=== PATIENT | male | born 1965 | race Caucasian/White ===

== ENCOUNTER 2017-05-27 06:59 | Emergency (ER) | payer OTHER ==
[2017-05-27 07:11] VITALS: BP 149/83; PULSE 70; TEMP 98; BMI 32.5
[2017-05-27] MEDS ORDERED: IBUPROFEN 600 MG TABLET (FP) PO ONE ×2 (08:24→08:32)
--- NOTE | 2017-05-27 08:31 | PDOC ---
History of Present Illness - General Chief Complaint: Injury Stated Complaint: BACK PAIN S/P FALL Time Seen by Provider: 05/27/17 08:21 History Source: Patient Exam Limitations: No Limitations - History of Present Illness Initial Comments: 05/27/17 08:26 Patient slipped and fell this morning ice falling onto his right side with now complaints of pain to right hip and low back. No numbness or tingling to hands, no head injury Occurred: reports: just prior to arrival, this morning Severity: reports: moderate Pain Location: reports: back, pelvis Method of Injury: Yes: fall Modifying Factors: improves with: None Loss of Consciousness: no loss of consciousness Past History - Travel Traveled outside of the country in the last 30 days: No Close contact w/someone who was outside of country & ill: No - Past Medical History Allergies/Adverse Reactions: Allergies Allergy/AdvReac Type Severity Reaction Status Date / Time No Known Allergies Allergy Verified 05/27/17 07:11 Home Medications: Ambulatory Orders Cyclobenzaprine HCl [Flexeril 10 mg] 10 mg PO BID PRN #14 tablet 05/27/17 Ibuprofen 600 mg PO Q6H PRN #30 tablet 05/27/17 COPD: No Diabetes: Yes - Suicide/Smoking/Psychosocial Hx Smoking History: Never smoked Hx Alcohol Use: No Drug/Substance Use Hx: No Substance Use Type: None Review of Systems - Review of Systems Able to Perform ROS?: Yes Is the patient limited [place] Citizen proficient: Yes Constitutional: Yes: See HPI. No: Symptoms Reported, Chills HEENTM: Yes: See HPI. No: Symptoms Reported Respiratory: Yes: See HPI. No: Symptoms reported Musculoskeletal: Yes: Symptoms Reported, See HPI, Back Pain, Joint Pain, Muscle Pain Integumentary: Yes: See HPI, Bruising Neurological: Yes: See HPI. No: Symptoms reported, Headache All Other Systems: Reviewed and Negative *Physical Exam - Vital Signs Last Vital Signs Temp Pulse Resp BP Pulse Ox 98.0 F 70 18 149/83 97 05/27/17 07:08 05/27/17 07:08 05/27/17 07:08 05/27/17 07:08 05/27/17 07:08 - Physical Exam General Appearance: Yes: Nourished, Appropriately Dressed, Apparent Distress HEENT: positive: DAVINA, Normal ENT Inspection, TMs Normal, Pharynx Normal Neck: positive: Supple. negative: Tender Respiratory/Chest: positive: Lungs Clear, Normal Breath Sounds Cardiovascular: positive: Regular Rate Gastrointestinal/Abdominal: positive: Soft Musculoskeletal: positive: Normal Inspection, Decreased Range of Motion, Vertebral Tenderness (patient has tenderness palpated to multiple areas with very light palpation, range of motion is limited secondary to the spasm palpated to the right paravertebral spinous musculature. No crepitus or step- offs, no obvious bruising or erythema noted to areas of impact.) Extremity: positive: Normal Capillary Refill, Normal Inspection, Normal Range of Motion (ambulatory ) Integumentary: positive: Normal Color, Dry, Warm. negative: Swelling, Ecchymosis, Bruising Neurologic: positive: clinic receptionist II-XII NML intact, Fully Oriented, Alert, Normal Mood/ Affect, Normal Response, Motor Strength 09/12 ED Treatment Course - RADIOLOGY Radiology Studies Ordered: Category Date Time Status SPINE-LUMBAR SACRAL [RAD] Stat Radiology 05/27/17 08:25 Ordered Progress Note - Progress Note Progress Note: States negative for fractures or dislocation, reveal some DJD. Fall with muscle strain. We'll treat with NSAIDs and cyclobenzaprine *DC/Admit/Observation/Transfer Diagnosis at time of Disposition: Low back strain Qualifiers: Encounter type: initial encounter Qualified Code(s): S39.012A - Strain of muscle, fascia and tendon of lower back, initial encounter - Discharge Dispostion Disposition: HOME Condition at time of disposition: Stable Admit: No - Prescriptions Prescriptions: Cyclobenzaprine HCl [Flexeril 10 mg] 10 mg PO BID PRN #14 tablet PRN Reason: spasm Ibuprofen 600 mg PO Q6H PRN #30 tablet PRN Reason: Pain - Referrals Referrals: Joshua Maza MD, MD [Primary Care Provider] - - Patient Instructions Printed Discharge Instructions: DI for Back Strain or Sprain Additional Instructions: Rest, no heavy lifting or exercise until pain is resolved Hot soaks to neck and low back as often as possible/hot showers or Jacuzzis No massage or therapy until spasm is gone Continue ibuprofen 2-200 mg tablets every 6 hours for the next 3 days then as needed for pain and swelling Cyclobenzaprine 1-10mg every 8 hours as needed for spasm If not significant improvement within 24 hours with medication and rest regime, followup with private physician for change in medications and /or therapy. - Post Discharge Activity Forms/Work/School Notes: Back to Work
== END 2017-05-27 09:22 | disposition home or self-care (01) ==
LOC: JERFT 06:59 → JER 06:59 → JERFT 09:22
DX: S39.012A Strain of muscle, fascia and tendon of lower back, initial encounter (principal); W00.2XXA Other fall from one level to another due to ice and snow, initial encounter; Y93.89 Activity, other specified; Y92.89 Other specified places as the place of occurrence of the external cause
CPT/HCPCS: 72100-TC; 99281-25

== ENCOUNTER 2020-04-09 12:25 | Inpatient (IN) | payer OTHER ==
[2020-04-09] MEDS ORDERED: DEXAMETHASONE 4 MG TABLET (FP) PO ONE (13:02)
[2020-04-09] MEDS ORDERED: DEXAMETHASONE SOD PHOSPHATE 4 MG/1 ML VIAL IVPUSH ONE (13:22)
[2020-04-09] MEDS ORDERED: DEXAMETHASONE SOD PHOSPHATE 4 MG/1 ML VIAL ONE (13:24)
[2020-04-09] MEDS ORDERED: AZITHROMYCIN IVPB 250 MG in DEXTROSE 5%-WATER - 250 ML IVPB ONE (13:29)
[2020-04-09 13:31] LABS: BASO % 0.5 % (0-2.0); EOS % 0.6 % (0-4.5); HEMATOCRIT 46.4 % (35.4-49); HEMOGLOBIN 15.5 GM/dL (11.7-16.9); LYMPH % 16.8 % (8-40); MCH 29.4 pg (25.7-33.7); MCHC 33.4 g/dl (32.0-35.9); MEAN CELL VOLUME 88.1 fl (80-96); MEAN PLT VOLUME 8.9 fl (7.5-11.1); MONO % 5.7 % (3.8-10.2); NEUT % 76.4 % (42.8-82.8); PLATELET COUNT 195 K/MM3 (134-434); RBC 5.26 M/mm3 (4.00-5.60); RDW 13.1 % (11.9-15.9); WHITE BLOOD COUNT 8.3 K/mm3 (4.0-10.0)
[2020-04-09 13:35] LABS: EPI CELLS 2 /uL (0-25.1); HYALINE CASTS 0 /uL (0-3.1); PH,URINE 5.5 (5.0-8.0); URINE APPEARANCE CLEAR; URINE BACTERIA 35 /uL (0-1359); URINE BILIRUBIN NEGATIVE (NEGATIVE); URINE COLOR YELLOW; URINE GLUCOSE (UA) 3+ (NEGATIVE); URINE KETONE 1+ (NEGATIVE); URINE LEUK ESTERASE NEGATIVE (NEGATIVE); URINE NITRITE NEGATIVE (NEGATIVE); URINE PROTEIN 1+ (NEGATIVE); URINE RBC 23 /uL (0-23.9); URINE WBC 14 /uL (0-25.8)
[2020-04-09] MEDS ORDERED: CEFTRIAXONE 1 GM/50 ML BAG ONE (13:44)
[2020-04-09] MEDS ORDERED: AZITHROMYCIN IVPB 500 MG/250 ML BAG IVPB ONE (13:44)
[2020-04-09 13:46] LABS: INR 1.08 (0.83-1.09)
[2020-04-09 13:48] LABS: ACTIVATED PTT 29.4 SECONDS (25.2-36.5)
[2020-04-09 13:52] LABS: CHLORIDE 93 mmol/L (98-107); POTASSIUM 3.5 mmol/L (3.5-5.1); SODIUM 130 mmol/L (136-145)
[2020-04-09 13:55] LABS: ALBUMIN 2.4 g/dl (3.4-5.0); ANION GAP 7 MMOL/L (8-16); BLOOD UREA NITROGEN 5.4 mg/dL (7-18); CO2 30 mmol/L (21-32); GLUCOSE,RANDOM 369 mg/dL (74-106)
[2020-04-09 13:57] LABS: BILIRUBIN,DIRECT 0.2 mg/dL (0.0-0.2)
[2020-04-09 13:58] LABS: CREATININE 0.7 mg/dL (0.55-1.3); SGOT/AST 45 U/L (15-37); SGPT/ALT 30 U/L (13-61)
[2020-04-09 13:59] LABS: VENOUS BASE EXCESS 5.6 mmol/L (-2-2); VENOUS O2 SATURATION 41.6 % (70-80); VENOUS PCO2 50.5 mmHg (38-52); VENOUS PH 7.414 (7.310-7.410)
[2020-04-09 13:59] LABS: BILIRUBIN,TOTAL 0.5 mg/dL (0.2-1)
[2020-04-09 14:00] LABS: ALK PHOS 136 U/L (45-117)
[2020-04-09 14:01] LABS: LDH 509 U/L (87-246)
[2020-04-09] MEDS ORDERED: ENOXAPARIN NA (PORCINE) 40 MG/0.4 ML DISP.SYRIN SQ ONE (14:19)
[2020-04-09] MEDS ORDERED: ENOXAPARIN NA (PORCINE) 60 MG/0.6 ML DISP.SYRIN SQ ONE (14:26)
[2020-04-09] MEDS ORDERED: MIDAZOLAM HCL 2 MG/2 ML SINGLE DOSE VIAL IVPUSH ONE (17:13)
[2020-04-09] MEDS ORDERED: LOSARTAN POTASSIUM 50 MG TABLET ONE (18:36)
[2020-04-09] MEDS: LOSARTAN POTASSIUM 50 MG TABLET PO SCH (18:38)
[2020-04-09] MEDS: INSULIN SLIDING SCALE (NOVOLOG) 1 VIAL SQ SCH (22:10)
[2020-04-10] MEDS: INSULIN SLIDING SCALE (NOVOLOG) 1 VIAL SQ SCH ×4 (06:49→22:58)
[2020-04-10 08:11] LABS: POTASSIUM 3.8 mmol/L (3.5-5.1)
[2020-04-10 08:13] LABS: BASO % 0.4 % (0-2.0); HEMATOCRIT 47.7 % (35.4-49); HEMOGLOBIN 16.1 GM/dL (11.7-16.9); LYMPH % 19.7 % (8-40); MCHC 33.7 g/dl (32.0-35.9); MEAN CELL VOLUME 89.1 fl (80-96); MEAN PLT VOLUME 9.3 fl (7.5-11.1); MONO % 9.6 % (3.8-10.2); NEUT % 70.3 % (42.8-82.8); PLATELET COUNT 262 K/MM3 (134-434); RBC 5.36 M/mm3 (4.00-5.60); RDW 12.9 % (11.9-15.9); WHITE BLOOD COUNT 8.2 K/mm3 (4.0-10.0)
[2020-04-10 08:15] LABS: BLOOD UREA NITROGEN 10.2 mg/dL (7-18); MAGNESIUM 2.1 mg/dL (1.8-2.4)
[2020-04-10 08:16] LABS: ALBUMIN 2.5 g/dl (3.4-5.0); CALCIUM 8.3 mg/dL (8.5-10.1)
[2020-04-10 08:18] LABS: CREATININE 0.7 mg/dL (0.55-1.3); PHOSPHOROUS 4.4 mg/dL (2.5-4.9)
[2020-04-10 08:20] LABS: TOT PROT 7.2 g/dl (6.4-8.2)
[2020-04-10] MEDS ORDERED: CEFTRIAXONE 1 GM in DEXTROSE 5%-WATER - 50 ML IVPB SCH (10:00)
[2020-04-10] MEDS ORDERED: ASCORBIC ACID 500 MG TABLET (FP) PO SCH (10:00)
[2020-04-10] MEDS ORDERED: AZITHROMYCIN IVPB 500 MG/250 ML BAG IVPB SCH (10:00)
[2020-04-10] MEDS ORDERED: ENOXAPARIN NA (PORCINE) 40 MG/0.4 ML DISP.SYRIN SQ SCH (10:00)
[2020-04-10] MEDS ORDERED: ZINC SULFATE 220 MG CAPSULE (FP) PO SCH (10:00)
[2020-04-10] MEDS ORDERED: DEXAMETHASONE SOD PHOSPHATE 4 MG/1 ML VIAL IVPUSH SCH (10:00)
[2020-04-10] MEDS: LOSARTAN POTASSIUM 50 MG TABLET PO SCH (10:27)
[2020-04-10] MEDS ORDERED: APIXABAN 5 MG TABLET PO SCH (12:30)
[2020-04-10] MEDS ORDERED: FAMOTIDINE 20 MG/50 ML IVPB 20 MG/50 ML MG IVPB SCH (12:30)
[2020-04-10] MEDS ORDERED: INSULIN (LEVEMIR) 100 UNITS/ML UNITS SQ ONE (13:34)
[2020-04-10 15:14] LABS: EPI CELLS 3 /uL (0-25.1); HYALINE CASTS 2 /uL (0-3.1); PH,URINE 5.5 (5.0-8.0); URINE APPEARANCE CLEAR; URINE BACTERIA 6 /uL (0-1359); URINE BILIRUBIN NEGATIVE (NEGATIVE); URINE COLOR YELLOW; URINE GLUCOSE (UA) 3+ (NEGATIVE); URINE KETONE 4+ (NEGATIVE); URINE LEUK ESTERASE NEGATIVE (NEGATIVE); URINE NITRITE NEGATIVE (NEGATIVE); URINE PROTEIN 1+ (NEGATIVE); URINE RBC 6 /uL (0-23.9); URINE UROBILINOGEN 0.2 mg/dL (0.2-1.0); URINE WBC 8 /uL (0-25.8)
[2020-04-10] MEDS ORDERED: REMDESIVIR 200 MG in SODIUM CHLORIDE 210 ML IVPB ONE (15:44)
[2020-04-10] MEDS ORDERED: SODIUM CHLORIDE 1,000 ML IV STA (18:40)
[2020-04-10 20:18] LABS: BASO % 0.3 % (0-2.0); HEMATOCRIT 46.8 % (35.4-49); HEMOGLOBIN 15.8 GM/dL (11.7-16.9); LYMPH % 13.4 % (8-40); MCH 29.9 pg (25.7-33.7); MCHC 33.7 g/dl (32.0-35.9); MEAN CELL VOLUME 88.6 fl (80-96); MEAN PLT VOLUME 9.1 fl (7.5-11.1); MONO % 9.4 % (3.8-10.2); NEUT % 76.9 % (42.8-82.8); PLATELET COUNT 284 K/MM3 (134-434); RBC 5.28 M/mm3 (4.00-5.60); RDW 13.2 % (11.9-15.9); WHITE BLOOD COUNT 7.4 K/mm3 (4.0-10.0)
[2020-04-10 20:38] LABS: POTASSIUM 4.1 mmol/L (3.5-5.1)
[2020-04-10 20:40] LABS: BLOOD UREA NITROGEN 10.7 mg/dL (7-18); CALCIUM 7.9 mg/dL (8.5-10.1)
[2020-04-10 20:41] LABS: ALBUMIN 2.4 g/dl (3.4-5.0)
[2020-04-10 20:44] LABS: CREATININE 0.6 mg/dL (0.55-1.3)
[2020-04-10 20:45] LABS: BILIRUBIN,TOTAL 0.4 mg/dL (0.2-1); TOT PROT 6.8 g/dl (6.4-8.2)
[2020-04-10 21:44] LABS: ALLENS TEST POSITIVE; ARTERIAL BLD GAS O2 SATURATION 94.6 mmHg (95-98); ARTERIAL BLOOD GAS BASE EXCESS -2.2 mmol/L (-2-2); ARTERIAL BLOOD GAS PO2 69.5 mmHg (80-100); ARTERIAL BLOOD GAS pH 7.432 (7.350-7.450)
[2020-04-10] MEDS ORDERED: MUPIROCIN 2% TOPICAL OINTMENT FOR DECOLONIZATION NS SCH (22:00)
[2020-04-10] MEDS ORDERED: CHLORHEXIDINE GLUCONATE 4% CLEANSER FOR DECOLONIZATION TP SCH (22:00)
[2020-04-10] MEDS: FAMOTIDINE 20 MG/50 ML IVPB 20 MG/50 ML MG IVPB SCH (22:56)
[2020-04-10] MEDS: APIXABAN 5 MG TABLET PO SCH (22:56)
[2020-04-10] MEDS: INSULIN (LEVEMIR) 100 UNITS/ML UNITS SQ SCH (22:57)
[2020-04-11] MEDS: INSULIN SLIDING SCALE (NOVOLOG) 1 VIAL SQ SCH ×3 (06:27→23:37)
[2020-04-11] MEDS: INSULIN (LEVEMIR) 100 UNITS/ML UNITS SQ SCH ×2 (06:27→23:37)
[2020-04-11 08:24] LABS: BASO % 0.2 % (0-2.0); EOS % 0.1 % (0-4.5); HEMATOCRIT 43.6 % (35.4-49); HEMOGLOBIN 14.7 GM/dL (11.7-16.9); LYMPH % 19.5 % (8-40); MCH 29.5 pg (25.7-33.7); MCHC 33.7 g/dl (32.0-35.9); MEAN CELL VOLUME 87.4 fl (80-96); MEAN PLT VOLUME 8.4 fl (7.5-11.1); MONO % 11.3 % (3.8-10.2); NEUT % 68.9 % (42.8-82.8); PLATELET COUNT 298 K/MM3 (134-434); RBC 4.99 M/mm3 (4.00-5.60); RDW 13.2 % (11.9-15.9); WHITE BLOOD COUNT 10.5 K/mm3 (4.0-10.0)
[2020-04-11 08:49] LABS: POTASSIUM 3.7 mmol/L (3.5-5.1)
[2020-04-11 09:13] LABS: BILIRUBIN,TOTAL 0.6 mg/dL (0.2-1); BLOOD UREA NITROGEN 9.9 mg/dL (7-18); CALCIUM 7.9 mg/dL (8.5-10.1); TOT PROT 6.4 g/dl (6.4-8.2)
[2020-04-11 09:14] LABS: ALBUMIN 2.3 g/dl (3.4-5.0)
[2020-04-11 09:15] LABS: CREATININE 0.6 mg/dL (0.55-1.3)
[2020-04-11 09:16] LABS: PHOSPHOROUS 3.1 mg/dL (2.5-4.9)
[2020-04-11] MEDS ORDERED: cefTRIAXone SODIUM 1 GM VIAL ONE (09:47)
[2020-04-11] MEDS ORDERED: DEXTROSE 5%-WATER - 50 ML IVPB ONE (09:48)
[2020-04-11] MEDS ORDERED: CEFTRIAXONE 1 GM in DEXTROSE 5%-WATER - 50 ML IVPB SCH (10:00)
[2020-04-11] MEDS ORDERED: AZITHROMYCIN IVPB 500 MG/250 ML BAG IVPB SCH (10:00)
[2020-04-11] MEDS: FAMOTIDINE 20 MG/50 ML IVPB 20 MG/50 ML MG IVPB SCH ×2 (10:06→23:36)
[2020-04-11] MEDS: APIXABAN 5 MG TABLET PO SCH ×2 (10:07→23:36)
[2020-04-11] MEDS: ZINC SULFATE 220 MG CAPSULE (FP) PO SCH (10:07)
[2020-04-11] MEDS: LOSARTAN POTASSIUM 50 MG TABLET PO SCH (10:07)
[2020-04-11] MEDS: DEXAMETHASONE SOD PHOSPHATE 4 MG/1 ML VIAL IVPUSH SCH (10:07)
[2020-04-11] MEDS: ASCORBIC ACID 500 MG TABLET (FP) PO SCH (10:07)
[2020-04-11] MEDS: Insulin (LOG) Aspart 100 UNITS/ML VIAL SQ SCH ×2 (12:11→17:53)
[2020-04-11] MEDS: REMDESIVIR 100 MG in SODIUM CHLORIDE 230 ML IVPB SCH (17:10)
[2020-04-11] MEDS ORDERED: PT OWN MED DRAWER 7, Y5N ONE (18:53)
[2020-04-11] MEDS ORDERED: MELATONIN 5 MG TABLETS PO ONE (22:32)
[2020-04-12] MEDS: Insulin (LOG) Aspart 100 UNITS/ML VIAL SQ SCH ×3 (07:24→16:33)
[2020-04-12] MEDS: INSULIN (LEVEMIR) 100 UNITS/ML UNITS SQ SCH ×2 (07:24→21:57)
[2020-04-12] MEDS: INSULIN SLIDING SCALE (NOVOLOG) 1 VIAL SQ SCH ×4 (07:25→21:54)
[2020-04-12 08:03] LABS: POTASSIUM 3.8 mmol/L (3.5-5.1)
[2020-04-12 08:09] LABS: ALBUMIN 2.4 g/dl (3.4-5.0)
[2020-04-12 08:10] LABS: BLOOD UREA NITROGEN 9.8 mg/dL (7-18); CALCIUM 8.1 mg/dL (8.5-10.1)
[2020-04-12 08:13] LABS: CREATININE 0.5 mg/dL (0.55-1.3)
[2020-04-12 08:14] LABS: BILIRUBIN,TOTAL 0.6 mg/dL (0.2-1); PHOSPHOROUS 3.7 mg/dL (2.5-4.9)
[2020-04-12 08:15] LABS: TOT PROT 6.4 g/dl (6.4-8.2)
[2020-04-12 08:17] LABS: BASO % 0.3 % (0-2.0); EOS % 0.1 % (0-4.5); HEMATOCRIT 45.3 % (35.4-49); HEMOGLOBIN 15.2 GM/dL (11.7-16.9); LYMPH % 18.5 % (8-40); MCH 29.3 pg (25.7-33.7); MCHC 33.5 g/dl (32.0-35.9); MEAN CELL VOLUME 87.6 fl (80-96); MEAN PLT VOLUME 8.7 fl (7.5-11.1); MONO % 8.3 % (3.8-10.2); NEUT % 72.8 % (42.8-82.8); PLATELET COUNT 357 K/MM3 (134-434); RBC 5.17 M/mm3 (4.00-5.60); RDW 12.9 % (11.9-15.9); WHITE BLOOD COUNT 13.8 K/mm3 (4.0-10.0)
[2020-04-12] MEDS ORDERED: INSULIN (LEVEMIR) 100 UNITS/ML UNITS SQ SCH (08:38)
[2020-04-12] MEDS ORDERED: PT OWN MED DRAWER 7, Y5N ONE (09:09)
[2020-04-12] MEDS: LOSARTAN POTASSIUM 50 MG TABLET PO SCH (09:29)
[2020-04-12] MEDS: FAMOTIDINE 20 MG/50 ML IVPB 20 MG/50 ML MG IVPB SCH ×2 (09:29→21:45)
[2020-04-12] MEDS: ZINC SULFATE 220 MG CAPSULE (FP) PO SCH (09:29)
[2020-04-12] MEDS: DEXAMETHASONE SOD PHOSPHATE 4 MG/1 ML VIAL IVPUSH SCH (09:29)
[2020-04-12] MEDS: ASCORBIC ACID 500 MG TABLET (FP) PO SCH (09:30)
[2020-04-12] MEDS: APIXABAN 5 MG TABLET PO SCH ×2 (09:30→21:45)
[2020-04-12] MEDS: REMDESIVIR 100 MG in SODIUM CHLORIDE 230 ML IVPB SCH (16:34)
[2020-04-12] MEDS: MELATONIN 5 MG TABLETS PO SCH (23:39)
[2020-04-13] MEDS: Insulin (LOG) Aspart 100 UNITS/ML VIAL SQ SCH (06:59)
[2020-04-13] MEDS: INSULIN SLIDING SCALE (NOVOLOG) 1 VIAL SQ SCH ×4 (07:00→22:14)
[2020-04-13] MEDS: INSULIN (LEVEMIR) 100 UNITS/ML UNITS SQ SCH ×2 (07:01→22:13)
[2020-04-13 08:44] LABS: BASO % 0.2 % (0-2.0); EOS % 0.5 % (0-4.5); HEMATOCRIT 46.2 % (35.4-49); HEMOGLOBIN 15.5 GM/dL (11.7-16.9); LYMPH % 18.5 % (8-40); MCHC 33.5 g/dl (32.0-35.9); MEAN CELL VOLUME 86.7 fl (80-96); MEAN PLT VOLUME 8.3 fl (7.5-11.1); MONO % 7.9 % (3.8-10.2); NEUT % 72.9 % (42.8-82.8); PLATELET COUNT 342 K/MM3 (134-434); RBC 5.33 M/mm3 (4.00-5.60); RDW 12.8 % (11.9-15.9); WHITE BLOOD COUNT 12.5 K/mm3 (4.0-10.0)
[2020-04-13 09:01] LABS: POTASSIUM 3.2 mmol/L (3.5-5.1)
[2020-04-13] MEDS: ZINC SULFATE 220 MG CAPSULE (FP) PO SCH (09:02)
[2020-04-13] MEDS: APIXABAN 5 MG TABLET PO SCH ×2 (09:02→22:12)
[2020-04-13] MEDS: LOSARTAN POTASSIUM 50 MG TABLET PO SCH (09:02)
[2020-04-13] MEDS: FAMOTIDINE 20 MG/50 ML IVPB 20 MG/50 ML MG IVPB SCH ×2 (09:02→22:11)
[2020-04-13] MEDS: ASCORBIC ACID 500 MG TABLET (FP) PO SCH (09:02)
[2020-04-13 09:20] LABS: ALBUMIN 2.3 g/dl (3.4-5.0); CALCIUM 8.4 mg/dL (8.5-10.1)
[2020-04-13 09:21] LABS: BLOOD UREA NITROGEN 6.9 mg/dL (7-18); MAGNESIUM 1.8 mg/dL (1.8-2.4)
[2020-04-13 09:23] LABS: CREATININE 0.5 mg/dL (0.55-1.3)
[2020-04-13 09:24] LABS: PHOSPHOROUS 4.2 mg/dL (2.5-4.9)
[2020-04-13 09:25] LABS: BILIRUBIN,TOTAL 0.4 mg/dL (0.2-1)
[2020-04-13] MEDS: DEXAMETHASONE SOD PHOSPHATE 4 MG/1 ML VIAL IVPUSH SCH (09:51)
[2020-04-13] MEDS: INSULIN (NOVOLOG) ASPART 100 UNITS/ML 10ML VIAL SQ SCH ×2 (11:09→16:39)
[2020-04-13] MEDS ORDERED: POTASSIUM CHLORIDE ORAL LIQUID 20 MEQ/15 ML PO ONE (12:29)
[2020-04-13] MEDS: KCL 10 MEQ IVPB 10 MEQ/100 ML INFUS.BAG IVPB SCH ×3 (14:24→16:41)
[2020-04-13] MEDS: REMDESIVIR 100 MG in SODIUM CHLORIDE 230 ML IVPB SCH (16:16)
[2020-04-13] MEDS: MELATONIN 5 MG TABLETS PO SCH (22:12)
[2020-04-13] MEDS: ALPRAZolam 0.25 MG TABLET PO PRN (22:24)
[2020-04-14] MEDS: INSULIN (LEVEMIR) 100 UNITS/ML UNITS SQ SCH ×2 (06:46→22:11)
[2020-04-14] MEDS: INSULIN (NOVOLOG) ASPART 100 UNITS/ML 10ML VIAL SQ SCH ×3 (06:47→16:59)
[2020-04-14] MEDS: INSULIN SLIDING SCALE (NOVOLOG) 1 VIAL SQ SCH ×4 (06:48→22:12)
[2020-04-14 07:45] LABS: POTASSIUM 3.7 mmol/L (3.5-5.1)
[2020-04-14 07:53] LABS: CREATININE 0.4 mg/dL (0.55-1.3)
[2020-04-14 07:54] LABS: BILIRUBIN,TOTAL 0.5 mg/dL (0.2-1); CALCIUM 7.9 mg/dL (8.5-10.1)
[2020-04-14 07:55] LABS: MAGNESIUM 1.8 mg/dL (1.8-2.4); TOT PROT 5.4 g/dl (6.4-8.2)
[2020-04-14 08:08] LABS: BASO % 0.4 % (0-2.0); EOS % 1.2 % (0-4.5); HEMATOCRIT 44.2 % (35.4-49); HEMOGLOBIN 14.7 GM/dL (11.7-16.9); LYMPH % 18.3 % (8-40); MCH 29.5 pg (25.7-33.7); MCHC 33.3 g/dl (32.0-35.9); MEAN CELL VOLUME 88.6 fl (80-96); MEAN PLT VOLUME 8.7 fl (7.5-11.1); MONO % 7.3 % (3.8-10.2); NEUT % 72.8 % (42.8-82.8); PLATELET COUNT 314 K/MM3 (134-434); RBC 4.99 M/mm3 (4.00-5.60); RDW 12.8 % (11.9-15.9)
[2020-04-14 09:04] LABS: ANISOCYTOSIS 0; HELMET CELLS 0; HOWELL-JOLLY BODIES 0; MACROCYTOSIS 0; OVALOCYTE 0; PLATELET ESTIMATE NORMAL; ROULEAU 0; SICKELED CELLS 0; TARGET CELLS 0; TEAR DROP CELLS 0; TOXIC GRANULATION 0
[2020-04-14] MEDS: ASCORBIC ACID 500 MG TABLET (FP) PO SCH (09:41)
[2020-04-14] MEDS: ZINC SULFATE 220 MG CAPSULE (FP) PO SCH (09:41)
[2020-04-14] MEDS: LOSARTAN POTASSIUM 50 MG TABLET PO SCH (09:41)
[2020-04-14] MEDS: APIXABAN 5 MG TABLET PO SCH ×2 (09:41→22:11)
[2020-04-14] MEDS: ALPRAZolam 0.25 MG TABLET PO PRN (09:41)
[2020-04-14] MEDS: FAMOTIDINE 20 MG/50 ML IVPB 20 MG/50 ML MG IVPB SCH ×2 (09:42→22:12)
[2020-04-14] MEDS: DEXAMETHASONE SOD PHOSPHATE 4 MG/1 ML VIAL IVPUSH SCH (09:42)
[2020-04-14] MEDS: REMDESIVIR 100 MG in SODIUM CHLORIDE 230 ML IVPB SCH (16:59)
[2020-04-14] MEDS: MELATONIN 5 MG TABLETS PO SCH (22:11)
[2020-04-14] MEDS ORDERED: PT OWN MED DRAWER 7, Y5N ONE (22:14)
[2020-04-15] MEDS: MELATONIN 5 MG TABLETS PO SCH ×2 (01:18→22:21)
[2020-04-15] MEDS: INSULIN (LEVEMIR) 100 UNITS/ML UNITS SQ SCH ×2 (06:56→22:35)
[2020-04-15] MEDS: INSULIN (NOVOLOG) ASPART 100 UNITS/ML 10ML VIAL SQ SCH ×3 (06:57→18:10)
[2020-04-15] MEDS: INSULIN SLIDING SCALE (NOVOLOG) 1 VIAL SQ SCH ×4 (06:57→22:35)
[2020-04-15 07:00] LABS: BASO % 0.1 % (0-2.0); EOS % 2.6 % (0-4.5); HEMATOCRIT 43.8 % (35.4-49); HEMOGLOBIN 14.7 GM/dL (11.7-16.9); LYMPH % 12.9 % (8-40); MCH 29.6 pg (25.7-33.7); MCHC 33.6 g/dl (32.0-35.9); MEAN CELL VOLUME 88.1 fl (80-96); MEAN PLT VOLUME 8.6 fl (7.5-11.1); MONO % 6.4 % (3.8-10.2); PLATELET COUNT 370 K/MM3 (134-434); RBC 4.97 M/mm3 (4.00-5.60); RDW 12.8 % (11.9-15.9); WHITE BLOOD COUNT 15.3 K/mm3 (4.0-10.0)
[2020-04-15 07:20] LABS: POTASSIUM 3.7 mmol/L (3.5-5.1)
[2020-04-15 07:27] LABS: ALBUMIN 2.1 g/dl (3.4-5.0); BLOOD UREA NITROGEN 10.2 mg/dL (7-18)
[2020-04-15 07:30] LABS: CREATININE 0.4 mg/dL (0.55-1.3)
[2020-04-15 07:32] LABS: BILIRUBIN,TOTAL 0.5 mg/dL (0.2-1); TOT PROT 5.7 g/dl (6.4-8.2)
[2020-04-15] MEDS: ZINC SULFATE 220 MG CAPSULE (FP) PO SCH (09:18)
[2020-04-15] MEDS: ASCORBIC ACID 500 MG TABLET (FP) PO SCH (09:18)
[2020-04-15] MEDS: DEXAMETHASONE SOD PHOSPHATE 4 MG/1 ML VIAL IVPUSH SCH (09:18)
[2020-04-15] MEDS: APIXABAN 5 MG TABLET PO SCH ×2 (09:18→22:21)
[2020-04-15] MEDS: LOSARTAN POTASSIUM 50 MG TABLET PO SCH (09:18)
[2020-04-15] MEDS: FAMOTIDINE 20 MG/50 ML IVPB 20 MG/50 ML MG IVPB SCH ×2 (09:19→22:21)
[2020-04-16] MEDS: INSULIN (LEVEMIR) 100 UNITS/ML UNITS SQ SCH (07:18)
[2020-04-16] MEDS: INSULIN (NOVOLOG) ASPART 100 UNITS/ML 10ML VIAL SQ SCH ×3 (07:19→17:43)
[2020-04-16] MEDS: INSULIN SLIDING SCALE (NOVOLOG) 1 VIAL SQ SCH ×4 (07:20→22:01)
[2020-04-16 08:01] LABS: BASO % 0.1 % (0-2.0); EOS % 1.8 % (0-4.5); HEMATOCRIT 43.3 % (35.4-49); HEMOGLOBIN 14.3 GM/dL (11.7-16.9); LYMPH % 10.5 % (8-40); MEAN CELL VOLUME 87.8 fl (80-96); MEAN PLT VOLUME 8.7 fl (7.5-11.1); MONO % 6.8 % (3.8-10.2); NEUT % 80.8 % (42.8-82.8); PLATELET COUNT 395 K/MM3 (134-434); RBC 4.94 M/mm3 (4.00-5.60); RDW 13.1 % (11.9-15.9); WHITE BLOOD COUNT 15.7 K/mm3 (4.0-10.0)
[2020-04-16 08:21] LABS: CALCIUM 7.9 mg/dL (8.5-10.1)
[2020-04-16 08:22] LABS: BLOOD UREA NITROGEN 12.4 mg/dL (7-18)
[2020-04-16 08:25] LABS: CREATININE 0.5 mg/dL (0.55-1.3)
[2020-04-16 08:26] LABS: BILIRUBIN,TOTAL 0.9 mg/dL (0.2-1); TOT PROT 5.6 g/dl (6.4-8.2)
[2020-04-16] MEDS: FAMOTIDINE 20 MG/50 ML IVPB 20 MG/50 ML MG IVPB SCH ×2 (09:58→21:38)
[2020-04-16] MEDS: LOSARTAN POTASSIUM 50 MG TABLET PO SCH (09:58)
[2020-04-16] MEDS: DEXAMETHASONE SOD PHOSPHATE 4 MG/1 ML VIAL IVPUSH SCH (09:58)
[2020-04-16] MEDS: ASCORBIC ACID 500 MG TABLET (FP) PO SCH (09:59)
[2020-04-16] MEDS: ZINC SULFATE 220 MG CAPSULE (FP) PO SCH (10:00)
[2020-04-16] MEDS: APIXABAN 5 MG TABLET PO SCH ×2 (10:00→21:38)
[2020-04-16] MEDS ORDERED: INSULIN (NOVOLOG) ASPART 100 UNITS/ML 10ML VIAL SQ SCH (16:30)
[2020-04-16] MEDS: MELATONIN 5 MG TABLETS PO SCH (21:38)
[2020-04-16] MEDS ORDERED: INSULIN (LEVEMIR) 100 UNITS/ML UNITS SQ SCH (22:00)
[2020-04-16] MEDS ORDERED: diphenhydrAMINE HCL 25 MG CAPSULE (FP) PO ONE (22:07)
[2020-04-17] MEDS: INSULIN (NOVOLOG) ASPART 100 UNITS/ML 10ML VIAL SQ SCH ×3 (06:30→16:49)
[2020-04-17] MEDS: INSULIN SLIDING SCALE (NOVOLOG) 1 VIAL SQ SCH ×4 (06:31→23:11)
[2020-04-17 06:34] LABS: BASO % 0.3 % (0-2.0); EOS % 0.8 % (0-4.5); HEMATOCRIT 43.3 % (35.4-49); HEMOGLOBIN 14.3 GM/dL (11.7-16.9); LYMPH % 9.9 % (8-40); MCH 28.9 pg (25.7-33.7); MEAN CELL VOLUME 87.7 fl (80-96); MEAN PLT VOLUME 8.2 fl (7.5-11.1); MONO % 7.5 % (3.8-10.2); NEUT % 81.5 % (42.8-82.8); PLATELET COUNT 370 K/MM3 (134-434); RBC 4.94 M/mm3 (4.00-5.60)
[2020-04-17 06:45] LABS: POTASSIUM 3.8 mmol/L (3.5-5.1)
[2020-04-17 06:54] LABS: BLOOD UREA NITROGEN 10.1 mg/dL (7-18); CALCIUM 7.9 mg/dL (8.5-10.1)
[2020-04-17 06:55] LABS: MAGNESIUM 1.8 mg/dL (1.8-2.4)
[2020-04-17 06:58] LABS: CREATININE 0.4 mg/dL (0.55-1.3)
[2020-04-17 06:59] LABS: BILIRUBIN,TOTAL 0.8 mg/dL (0.2-1); PHOSPHOROUS 3.8 mg/dL (2.5-4.9); TOT PROT 5.5 g/dl (6.4-8.2)
[2020-04-17] MEDS ORDERED: INSULIN (LEVEMIR) 100 UNITS/ML UNITS SQ SCH ×2 (07:00→22:00)
[2020-04-17 09:32] LABS: ARTERIAL BLD GAS O2 SATURATION 89.5 mmHg (95-98); ARTERIAL BLOOD GAS BASE EXCESS 4.1 mmol/L (-2-2); ARTERIAL BLOOD GAS PO2 53.3 mmHg (80-100); ARTERIAL BLOOD GAS pH 7.465 (7.350-7.450)
[2020-04-17 09:34] LABS: ALLENS TEST POSITIVE
[2020-04-17] MEDS: FAMOTIDINE 20 MG/50 ML IVPB 20 MG/50 ML MG IVPB SCH ×2 (09:34→21:11)
[2020-04-17] MEDS: DEXAMETHASONE SOD PHOSPHATE 4 MG/1 ML VIAL IVPUSH SCH (09:34)
[2020-04-17] MEDS: LOSARTAN POTASSIUM 50 MG TABLET PO SCH (09:34)
[2020-04-17] MEDS: ZINC SULFATE 220 MG CAPSULE (FP) PO SCH (09:35)
[2020-04-17] MEDS: ASCORBIC ACID 500 MG TABLET (FP) PO SCH (09:35)
[2020-04-17] MEDS: APIXABAN 5 MG TABLET PO SCH ×2 (09:35→21:10)
[2020-04-17] MEDS: DEXAMETHASONE SOD PHOSPHATE 10 MG/1 ML VIAL IVPUSH SCH ×3 (11:53→21:10)
[2020-04-17] MEDS ORDERED: LABETALOL HCL 5 MG/1 ML (100MG/20 ML VIAL) IVPUSH ONE (18:08)
[2020-04-17] MEDS: CHLORHEXIDINE GLUCONATE 4% CLEANSER FOR DECOLONIZATION TP SCH (21:10)
[2020-04-17] MEDS: MUPIROCIN 2% TOPICAL OINTMENT FOR DECOLONIZATION NS SCH (21:10)
[2020-04-17] MEDS: MELATONIN 5 MG TABLETS PO SCH (21:11)
[2020-04-18] MEDS: DEXAMETHASONE SOD PHOSPHATE 10 MG/1 ML VIAL IVPUSH SCH ×4 (03:16→22:00)
[2020-04-18] MEDS: INSULIN (LEVEMIR) 100 UNITS/ML UNITS SQ SCH ×2 (06:42→22:40)
[2020-04-18] MEDS: INSULIN SLIDING SCALE (NOVOLOG) 1 VIAL SQ SCH ×4 (06:43→22:38)
[2020-04-18 07:31] LABS: POTASSIUM 4.5 mmol/L (3.5-5.1)
[2020-04-18 07:34] LABS: BASO % 0.3 % (0-2.0); HEMATOCRIT 46.2 % (35.4-49); HEMOGLOBIN 15.3 GM/dL (11.7-16.9); LYMPH % 3.9 % (8-40); MCH 29.2 pg (25.7-33.7); MCHC 33.2 g/dl (32.0-35.9); MEAN PLT VOLUME 8.6 fl (7.5-11.1); MONO % 5.5 % (3.8-10.2); NEUT % 90.3 % (42.8-82.8); PLATELET COUNT 405 K/MM3 (134-434); RBC 5.25 M/mm3 (4.00-5.60); WHITE BLOOD COUNT 20.7 K/mm3 (4.0-10.0)
[2020-04-18] MEDS ORDERED: ALBUTEROL SO4 0.083% IH SOL 2.5 MG/3 ML VIAL.NEB. NEB PRN ×2 (07:35→08:43)
[2020-04-18 07:37] LABS: CALCIUM 8.1 mg/dL (8.5-10.1)
[2020-04-18 07:39] LABS: BILIRUBIN,TOTAL 0.4 mg/dL (0.2-1); BLOOD UREA NITROGEN 10.1 mg/dL (7-18); PHOSPHOROUS 4.8 mg/dL (2.5-4.9)
[2020-04-18 07:41] LABS: CREATININE 0.5 mg/dL (0.55-1.3); TOT PROT 5.9 g/dl (6.4-8.2)
[2020-04-18] MEDS ORDERED: ALBUTEROL SO4 2.5/IPRATROPIUM 0.5 INH SOL 3 ML VIAL.NEB. NEB SCH ×3 (07:45→14:00)
[2020-04-18] MEDS ORDERED: ALBUTEROL SO4 HFA INHALER IH PRN (08:16)
[2020-04-18] MEDS ORDERED: RAPID SEQUENCE INTUBATION KIT NR ONE (09:39)
[2020-04-18 09:49] LABS: ANISOCYTOSIS 0; MACROCYTOSIS 0; PLATELET ESTIMATE NORMAL
[2020-04-18] MEDS ORDERED: PROPOFOL 1,000,000 MCG/100 ML VIAL ONE ×2 (09:50→13:54)
[2020-04-18] MEDS ORDERED: FENTANYL IVPB 500 MCG/100 ML BAG IVPB ONE (09:51)
[2020-04-18] MEDS ORDERED: MIDAZOLAM HCL 5 MG/1 ML Single Dose Vial ONE ×2 (09:59→10:51)
[2020-04-18] MEDS ORDERED: LOSARTAN POTASSIUM 50 MG TABLET PO SCH (10:00)
[2020-04-18] MEDS ORDERED: MIDAZOLAM IN 0.9 % SOD.CHLORID 1 MG/1 ML PLAST..BAG ONE ×2 (10:52→13:54)
[2020-04-18] MEDS: ASCORBIC ACID 500 MG TABLET (FP) PO SCH (11:00)
[2020-04-18] MEDS ORDERED: VECURONIUM BROMIDE 50 MG/50 ML VIAL IVPUSH ONE (12:00)
[2020-04-18] MEDS: ZINC SULFATE 220 MG CAPSULE (FP) PO SCH (12:11)
[2020-04-18] MEDS: FAMOTIDINE 20 MG/50 ML IVPB 20 MG/50 ML MG IVPB SCH ×2 (12:11→22:14)
[2020-04-18] MEDS: APIXABAN 5 MG TABLET PO SCH ×2 (12:11→22:29)
[2020-04-18 12:22] LABS: ARTERIAL BLD GAS O2 SATURATION 86.3 mmHg (95-98); ARTERIAL BLOOD GAS BASE EXCESS 2.2 mmol/L (-2-2); ARTERIAL BLOOD GAS PO2 54.8 mmHg (80-100); ARTERIAL BLOOD GAS pH 7.343 (7.350-7.450)
[2020-04-18 12:23] LABS: ALLENS TEST POSITIVE; VENT MODE A/C; VENT RATE 24
[2020-04-18] MEDS ORDERED: FENTANYL NS IVPB 500 MCG/100 ML BAG IVPB ONE (13:53)
[2020-04-18] MEDS: PROPOFOL 1,000,000 MCG/100 ML VIAL IVPB SCH (14:00)
[2020-04-18] MEDS: MIDAZOLAM IN 0.9 % SOD.CHLORID 100 MG/100 ML PLAST..BAG IVPB SCH ×2 (14:00→22:17)
[2020-04-18] MEDS: FENTANYL NS IVPB 500 MCG/100 ML BAG IVPB SCH ×2 (14:15→16:56)
[2020-04-18] MEDS ORDERED: NOREPINEPHRINE BITARTRATE 8,000 MCG/500 ML BAG IVPB ONE (14:45)
[2020-04-18] MEDS: NOREPINEPHRINE D5W PREMIX 16,000 MCG/500 ML BAG IVPB SCH (14:45)
[2020-04-18] MEDS ORDERED: NOREPINEPHRINE BITARTRATE 4 MG/4 ML ML IV ONE (14:47)
[2020-04-18] MEDS ORDERED: VECURONIUM BROMIDE 10 MG/10 ML VIAL IVPUSH ONE (14:58)
[2020-04-18] MEDS: MUPIROCIN 2% TOPICAL OINTMENT FOR DECOLONIZATION NS SCH ×2 (16:54→22:14)
[2020-04-18] MEDS: VECURONIUM BROMIDE 100 MG/100 ML BAG IVPB SCH (17:15)
[2020-04-18] MEDS: CHLORHEXIDINE GLUCONATE 4% CLEANSER FOR DECOLONIZATION TP SCH (22:14)
[2020-04-18] MEDS: MELATONIN 5 MG TABLETS PO SCH (22:15)
[2020-04-19] MEDS: DEXAMETHASONE SOD PHOSPHATE 10 MG/1 ML VIAL IVPUSH SCH ×4 (03:09→21:22)
[2020-04-19 06:00] LABS: ARTERIAL BLD GAS O2 SATURATION 93.5 mmHg (95-98); ARTERIAL BLOOD GAS pH 7.376 (7.350-7.450)
[2020-04-19 06:01] LABS: ALLENS TEST POSITIVE
[2020-04-19 06:02] LABS: VENT MODE A/C; VENT RATE 24
[2020-04-19] MEDS: INSULIN SLIDING SCALE (NOVOLOG) 1 VIAL SQ SCH ×4 (06:15→21:45)
[2020-04-19] MEDS: INSULIN (LEVEMIR) 100 UNITS/ML UNITS SQ SCH ×2 (06:16→21:45)
[2020-04-19 08:21] LABS: POTASSIUM 4.7 mmol/L (3.5-5.1)
[2020-04-19 08:24] LABS: ALBUMIN 1.8 g/dl (3.4-5.0); BLOOD UREA NITROGEN 17.7 mg/dL (7-18); CALCIUM 7.6 mg/dL (8.5-10.1)
[2020-04-19 08:25] LABS: MAGNESIUM 2.2 mg/dL (1.8-2.4)
[2020-04-19 08:26] LABS: CREATININE 0.6 mg/dL (0.55-1.3)
[2020-04-19 08:27] LABS: PHOSPHOROUS 3.5 mg/dL (2.5-4.9)
[2020-04-19 08:28] LABS: BILIRUBIN,TOTAL 0.2 mg/dL (0.2-1); TOT PROT 5.3 g/dl (6.4-8.2)
[2020-04-19 08:29] LABS: BASO % 0.3 % (0-2.0); HEMATOCRIT 42.2 % (35.4-49); HEMOGLOBIN 13.5 GM/dL (11.7-16.9); LYMPH % 4.1 % (8-40); MCH 28.7 pg (25.7-33.7); MCHC 32.1 g/dl (32.0-35.9); MEAN CELL VOLUME 89.5 fl (80-96); MEAN PLT VOLUME 8.7 fl (7.5-11.1); MONO % 7.4 % (3.8-10.2); NEUT % 88.2 % (42.8-82.8); PLATELET COUNT 402 K/MM3 (134-434); RBC 4.71 M/mm3 (4.00-5.60); RDW 13.3 % (11.9-15.9); WHITE BLOOD COUNT 18.9 K/mm3 (4.0-10.0)
[2020-04-19] MEDS: FAMOTIDINE 20 MG/50 ML IVPB 20 MG/50 ML MG IVPB SCH ×2 (09:30→21:25)
[2020-04-19] MEDS: ZINC SULFATE 220 MG CAPSULE (FP) PO SCH (09:31)
[2020-04-19] MEDS: APIXABAN 5 MG TABLET PO SCH ×2 (09:31→21:23)
[2020-04-19] MEDS: ASCORBIC ACID 500 MG TABLET (FP) PO SCH (09:31)
[2020-04-19] MEDS: MIDAZOLAM IN 0.9 % SOD.CHLORID 100 MG/100 ML PLAST..BAG IVPB SCH ×2 (09:44→14:30)
[2020-04-19] MEDS: MUPIROCIN 2% TOPICAL OINTMENT FOR DECOLONIZATION NS SCH ×2 (09:45→21:23)
[2020-04-19] MEDS ORDERED: PROPOFOL 1,000,000 MCG/100 ML VIAL ONE (11:36)
[2020-04-19] MEDS: PROPOFOL 1,000,000 MCG/100 ML VIAL IVPB SCH ×3 (12:06→17:59)
[2020-04-19] MEDS: FENTANYL NS IVPB 500 MCG/100 ML BAG IVPB SCH ×2 (14:30→16:21)
[2020-04-19] MEDS: NOREPINEPHRINE D5W PREMIX 16,000 MCG/500 ML BAG IVPB SCH (16:00)
[2020-04-19] MEDS: VECURONIUM BROMIDE 100 MG/100 ML BAG IVPB SCH (17:58)
[2020-04-19 19:38] LABS: HIV INTERPRETATION NEGATIVE (NEGATIVE)
[2020-04-19] MEDS: CHLORHEXIDINE GLUCONATE 4% CLEANSER FOR DECOLONIZATION TP SCH (21:24)
[2020-04-19] MEDS: MELATONIN 5 MG TABLETS PO SCH (21:24)
[2020-04-20] MEDS: PROPOFOL 1,000,000 MCG/100 ML VIAL IVPB SCH ×5 (01:00→23:00)
[2020-04-20] MEDS: DEXAMETHASONE SOD PHOSPHATE 10 MG/1 ML VIAL IVPUSH SCH ×2 (02:50→09:20)
[2020-04-20] MEDS: FENTANYL NS IVPB 500 MCG/100 ML BAG IVPB SCH ×2 (04:00→13:50)
[2020-04-20] MEDS: MIDAZOLAM IN 0.9 % SOD.CHLORID 100 MG/100 ML PLAST..BAG IVPB SCH ×2 (04:00→13:49)
[2020-04-20] MEDS: INSULIN SLIDING SCALE (NOVOLOG) 1 VIAL SQ SCH ×4 (06:08→22:40)
[2020-04-20] MEDS: INSULIN (LEVEMIR) 100 UNITS/ML UNITS SQ SCH ×2 (06:08→22:39)
[2020-04-20 06:52] LABS: ARTERIAL BLD GAS O2 SATURATION 89.9 mmHg (95-98); ARTERIAL BLOOD GAS BASE EXCESS 0.5 mmol/L (-2-2); ARTERIAL BLOOD GAS PO2 63.3 mmHg (80-100); ARTERIAL BLOOD GAS pH 7.312 (7.350-7.450)
[2020-04-20 06:56] LABS: ALLENS TEST POSITIVE
[2020-04-20 06:57] LABS: VENT MODE A/C
[2020-04-20 06:58] LABS: VENT RATE 24
[2020-04-20 07:27] LABS: BASO % 0.2 % (0-2.0); HEMATOCRIT 42.5 % (35.4-49); HEMOGLOBIN 13.2 GM/dL (11.7-16.9); LYMPH % 3.6 % (8-40); MCH 28.1 pg (25.7-33.7); MEAN CELL VOLUME 90.5 fl (80-96); MEAN PLT VOLUME 8.7 fl (7.5-11.1); MONO % 5.2 % (3.8-10.2); PLATELET COUNT 323 K/MM3 (134-434); RBC 4.69 M/mm3 (4.00-5.60); RDW 13.7 % (11.9-15.9); WHITE BLOOD COUNT 21.2 K/mm3 (4.0-10.0)
[2020-04-20 07:30] LABS: POTASSIUM 4.3 mmol/L (3.5-5.1)
[2020-04-20 07:37] LABS: CALCIUM 7.8 mg/dL (8.5-10.1)
[2020-04-20 07:38] LABS: ALBUMIN 1.8 g/dl (3.4-5.0); BLOOD UREA NITROGEN 27.6 mg/dL (7-18); MAGNESIUM 2.4 mg/dL (1.8-2.4); PHOSPHOROUS 3.7 mg/dL (2.5-4.9)
[2020-04-20 07:40] LABS: BILIRUBIN,TOTAL 0.3 mg/dL (0.2-1); TOT PROT 5.2 g/dl (6.4-8.2)
[2020-04-20 07:41] LABS: CREATININE 0.6 mg/dL (0.55-1.3)
[2020-04-20] MEDS: MUPIROCIN 2% TOPICAL OINTMENT FOR DECOLONIZATION NS SCH ×2 (09:21→22:17)
[2020-04-20] MEDS: FAMOTIDINE 20 MG/50 ML IVPB 20 MG/50 ML MG IVPB SCH ×2 (10:25→22:18)
[2020-04-20] MEDS: ASCORBIC ACID 500 MG TABLET (FP) PO SCH (10:27)
[2020-04-20] MEDS: ZINC SULFATE 220 MG CAPSULE (FP) PO SCH (10:27)
[2020-04-20] MEDS: APIXABAN 5 MG TABLET PO SCH ×2 (10:27→22:17)
[2020-04-20] MEDS: NOREPINEPHRINE D5W PREMIX 16,000 MCG/500 ML BAG IVPB SCH (11:00)
[2020-04-20 11:38] LABS: ANISOCYTOSIS 0; MACROCYTOSIS 0; PLATELET ESTIMATE NORMAL
[2020-04-20] MEDS ORDERED: DEXAMETHASONE SOD PHOSPHATE 10 MG/1 ML VIAL IVPUSH SCH (13:00)
[2020-04-20] MEDS ORDERED: MUPIROCIN 2% TOPICAL OINTMENT FOR DECOLONIZATION NS SCH (13:00)
[2020-04-20] MEDS ORDERED: MIDAZOLAM IN 0.9 % SOD.CHLORID 1 MG/1 ML PLAST..BAG ONE (13:08)
[2020-04-20] MEDS ORDERED: FENTANYL IVPB 500 MCG/100 ML BAG IVPB ONE (13:08)
[2020-04-20] MEDS ORDERED: PROPOFOL 1,000,000 MCG/100 ML VIAL ONE (13:45)
[2020-04-20] MEDS: ACETAMINOPHEN 1000 MG/100 ML VIAL (NON FORMULARY) IVPB PRN (16:50)
[2020-04-20] MEDS: CHLORHEXIDINE GLUCONATE 4% CLEANSER FOR DECOLONIZATION TP SCH (22:17)
[2020-04-20] MEDS: MELATONIN 5 MG TABLETS PO SCH (22:17)
[2020-04-20] MEDS: VECURONIUM BROMIDE 100 MG/100 ML BAG IVPB SCH (22:45)
[2020-04-21] MEDS: MIDAZOLAM IN 0.9 % SOD.CHLORID 100 MG/100 ML PLAST..BAG IVPB SCH ×4 (01:00→20:00)
[2020-04-21] MEDS: FENTANYL NS IVPB 500 MCG/100 ML BAG IVPB SCH ×3 (01:00→14:15)
[2020-04-21] MEDS: ACETAMINOPHEN 1000 MG/100 ML VIAL (NON FORMULARY) IVPB PRN ×2 (02:34→15:09)
[2020-04-21] MEDS: PROPOFOL 1,000,000 MCG/100 ML VIAL IVPB SCH ×5 (03:00→21:56)
[2020-04-21] MEDS: INSULIN (LEVEMIR) 100 UNITS/ML UNITS SQ SCH ×2 (06:16→21:53)
[2020-04-21] MEDS: INSULIN SLIDING SCALE (NOVOLOG) 1 VIAL SQ SCH ×4 (06:16→22:00)
[2020-04-21] MEDS: VECURONIUM BROMIDE 100 MG/100 ML BAG IVPB SCH (07:00)
[2020-04-21 07:11] LABS: BASO % 0.2 % (0-2.0); HEMATOCRIT 42.2 % (35.4-49); HEMOGLOBIN 13.1 GM/dL (11.7-16.9); LYMPH % 5.9 % (8-40); MCH 28.2 pg (25.7-33.7); MEAN CELL VOLUME 90.8 fl (80-96); MEAN PLT VOLUME 8.7 fl (7.5-11.1); MONO % 5.9 % (3.8-10.2); PLATELET COUNT 322 K/MM3 (134-434); RBC 4.65 M/mm3 (4.00-5.60); RDW 13.5 % (11.9-15.9); WHITE BLOOD COUNT 23.3 K/mm3 (4.0-10.0)
[2020-04-21 07:15] LABS: POTASSIUM 4.3 mmol/L (3.5-5.1)
[2020-04-21 07:18] LABS: ALBUMIN 1.8 g/dl (3.4-5.0); BLOOD UREA NITROGEN 38.4 mg/dL (7-18); CALCIUM 7.6 mg/dL (8.5-10.1); MAGNESIUM 2.5 mg/dL (1.8-2.4)
[2020-04-21 07:20] LABS: CREATININE 0.9 mg/dL (0.55-1.3); PHOSPHOROUS 3.8 mg/dL (2.5-4.9)
[2020-04-21 07:22] LABS: BILIRUBIN,TOTAL 0.3 mg/dL (0.2-1)
[2020-04-21] MEDS: FAMOTIDINE 20 MG/50 ML IVPB 20 MG/50 ML MG IVPB SCH ×2 (09:47→21:53)
[2020-04-21] MEDS: ZINC SULFATE 220 MG CAPSULE (FP) PO SCH (09:49)
[2020-04-21] MEDS: ASCORBIC ACID 500 MG TABLET (FP) PO SCH (09:49)
[2020-04-21] MEDS: APIXABAN 5 MG TABLET PO SCH ×2 (09:49→21:51)
[2020-04-21] MEDS: DEXAMETHASONE SOD PHOSPHATE 10 MG/1 ML VIAL IVPUSH SCH (09:50)
[2020-04-21 10:36] LABS: ANISOCYTOSIS 0; MACROCYTOSIS 0; PLATELET ESTIMATE NORMAL
[2020-04-21] MEDS: MUPIROCIN 2% TOPICAL OINTMENT FOR DECOLONIZATION NS SCH ×2 (10:59→21:51)
[2020-04-21] MEDS: NOREPINEPHRINE D5W PREMIX 16,000 MCG/500 ML BAG IVPB SCH (14:00)
[2020-04-21] MEDS: CHLORHEXIDINE GLUCONATE 4% CLEANSER FOR DECOLONIZATION TP SCH (21:51)
[2020-04-21] MEDS: MELATONIN 5 MG TABLETS PO SCH (21:53)
[2020-04-22] MEDS ORDERED: ACETAMINOPHEN INJECTION 100 ML IVPB ONE ×2 (00:36→10:28)
[2020-04-22] MEDS ORDERED: ACETAMINOPHEN 1000 MG/100 ML VIAL (NON FORMULARY) IVPB ONE (05:14)
[2020-04-22] MEDS: INSULIN SLIDING SCALE (NOVOLOG) 1 VIAL SQ SCH ×4 (06:27→21:44)
[2020-04-22] MEDS: INSULIN (LEVEMIR) 100 UNITS/ML UNITS SQ SCH ×2 (06:28→21:31)
[2020-04-22 06:40] LABS: ARTERIAL BLD GAS O2 SATURATION 90.8 mmHg (95-98); ARTERIAL BLOOD GAS BASE EXCESS 3.4 mmol/L (-2-2); ARTERIAL BLOOD GAS PO2 60.2 mmHg (80-100); ARTERIAL BLOOD GAS pH 7.397 (7.350-7.450)
[2020-04-22 06:53] LABS: ALLENS TEST POSITIVE
[2020-04-22 06:54] LABS: VENT MODE A/C; VENT RATE 24
[2020-04-22 07:14] LABS: INR 1.24 (0.83-1.09); PROTHROMBIN TIME (PATIENT) 14.9 SEC (9.7-13.0)
[2020-04-22 07:16] LABS: HEMATOCRIT 38.9 % (35.4-49); HEMOGLOBIN 12.6 GM/dL (11.7-16.9); MCH 29.1 pg (25.7-33.7); MCHC 32.3 g/dl (32.0-35.9); MEAN CELL VOLUME 89.9 fl (80-96); MEAN PLT VOLUME 8.6 fl (7.5-11.1); PLATELET COUNT 266 K/MM3 (134-434); RBC 4.32 M/mm3 (4.00-5.60); RDW 13.6 % (11.9-15.9)
[2020-04-22 07:19] LABS: POTASSIUM 4.3 mmol/L (3.5-5.1)
[2020-04-22 07:21] LABS: CALCIUM 7.6 mg/dL (8.5-10.1)
[2020-04-22 07:22] LABS: ALBUMIN 1.6 g/dl (3.4-5.0); BLOOD UREA NITROGEN 36.3 mg/dL (7-18); MAGNESIUM 2.9 mg/dL (1.8-2.4)
[2020-04-22 07:24] LABS: BILIRUBIN,DIRECT 0.2 mg/dL (0.0-0.2); CREATININE 0.7 mg/dL (0.55-1.3)
[2020-04-22 07:25] LABS: PHOSPHOROUS 3.1 mg/dL (2.5-4.9)
[2020-04-22 07:26] LABS: BILIRUBIN,TOTAL 0.4 mg/dL (0.2-1)
[2020-04-22] MEDS: ZINC SULFATE 220 MG CAPSULE (FP) PO SCH (09:32)
[2020-04-22] MEDS: DEXAMETHASONE SOD PHOSPHATE 10 MG/1 ML VIAL IVPUSH SCH (09:32)
[2020-04-22] MEDS: MUPIROCIN 2% TOPICAL OINTMENT FOR DECOLONIZATION NS SCH ×2 (09:32→21:30)
[2020-04-22] MEDS: APIXABAN 5 MG TABLET PO SCH ×2 (09:32→21:31)
[2020-04-22] MEDS: ASCORBIC ACID 500 MG TABLET (FP) PO SCH (09:33)
[2020-04-22] MEDS: FAMOTIDINE 20 MG/50 ML IVPB 20 MG/50 ML MG IVPB SCH ×2 (09:33→21:33)
[2020-04-22] MEDS: MIDAZOLAM IN 0.9 % SOD.CHLORID 100 MG/100 ML PLAST..BAG IVPB SCH (14:34)
[2020-04-22] MEDS: PROPOFOL 1,000,000 MCG/100 ML VIAL IVPB SCH (14:34)
[2020-04-22] MEDS: FENTANYL NS IVPB 500 MCG/100 ML BAG IVPB SCH (14:34)
[2020-04-22] MEDS: ACETAMINOPHEN 1000 MG/100 ML VIAL (NON FORMULARY) IVPB PRN (14:35)
[2020-04-22] MEDS: VECURONIUM BROMIDE 100 MG/100 ML BAG IVPB SCH (16:14)
[2020-04-22] MEDS: NOREPINEPHRINE D5W PREMIX 16,000 MCG/500 ML BAG IVPB SCH (16:14)
[2020-04-22] MEDS: CHLORHEXIDINE GLUCONATE 4% CLEANSER FOR DECOLONIZATION TP SCH (21:31)
[2020-04-23 06:47] LABS: ALLENS TEST POSITIVE; ARTERIAL BLD GAS O2 SATURATION 90.7 mmHg (95-98); ARTERIAL BLOOD GAS BASE EXCESS 4.5 mmol/L (-2-2); ARTERIAL BLOOD GAS PO2 63.4 mmHg (80-100); ARTERIAL BLOOD GAS pH 7.351 (7.350-7.450)
[2020-04-23 06:48] LABS: VENT MODE A/C
[2020-04-23 06:49] LABS: VENT RATE 24
[2020-04-23] MEDS: INSULIN (LEVEMIR) 100 UNITS/ML UNITS SQ SCH ×2 (06:57→22:51)
[2020-04-23] MEDS: INSULIN SLIDING SCALE (NOVOLOG) 1 VIAL SQ SCH ×4 (06:57→22:51)
[2020-04-23 07:11] LABS: BASO % 0.3 % (0-2.0); EOS % 1.7 % (0-4.5); HEMATOCRIT 39.2 % (35.4-49); HEMOGLOBIN 12.8 GM/dL (11.7-16.9); LYMPH % 10.7 % (8-40); MCH 29.5 pg (25.7-33.7); MCHC 32.5 g/dl (32.0-35.9); MEAN CELL VOLUME 90.5 fl (80-96); MONO % 4.9 % (3.8-10.2); NEUT % 82.4 % (42.8-82.8); PLATELET COUNT 255 K/MM3 (134-434); RBC 4.33 M/mm3 (4.00-5.60); RDW 13.3 % (11.9-15.9); WHITE BLOOD COUNT 16.9 K/mm3 (4.0-10.0)
[2020-04-23 07:28] LABS: POTASSIUM 4.5 mmol/L (3.5-5.1)
[2020-04-23 07:41] LABS: ALBUMIN 1.6 g/dl (3.4-5.0); BLOOD UREA NITROGEN 24.2 mg/dL (7-18); CALCIUM 7.4 mg/dL (8.5-10.1)
[2020-04-23 07:42] LABS: MAGNESIUM 2.5 mg/dL (1.8-2.4)
[2020-04-23 07:45] LABS: CREATININE 0.4 mg/dL (0.55-1.3); PHOSPHOROUS 3.3 mg/dL (2.5-4.9)
[2020-04-23 07:46] LABS: BILIRUBIN,TOTAL 0.4 mg/dL (0.2-1)
[2020-04-23] MEDS: FAMOTIDINE 20 MG/50 ML IVPB 20 MG/50 ML MG IVPB SCH ×2 (10:46→21:00)
[2020-04-23] MEDS: MUPIROCIN 2% TOPICAL OINTMENT FOR DECOLONIZATION NS SCH ×2 (10:46→21:00)
[2020-04-23] MEDS: DEXAMETHASONE SOD PHOSPHATE 10 MG/1 ML VIAL IVPUSH SCH (10:46)
[2020-04-23] MEDS: APIXABAN 5 MG TABLET PO SCH ×2 (10:47→20:59)
[2020-04-23] MEDS: ASCORBIC ACID 500 MG TABLET (FP) PO SCH (10:47)
[2020-04-23] MEDS: ZINC SULFATE 220 MG CAPSULE (FP) PO SCH (10:47)
[2020-04-23] MEDS: ACETAMINOPHEN 1000 MG/100 ML VIAL (NON FORMULARY) IVPB PRN (11:05)
[2020-04-23] MEDS: PROPOFOL 1,000,000 MCG/100 ML VIAL IVPB SCH ×4 (12:42→22:36)
[2020-04-23] MEDS: FENTANYL NS IVPB 500 MCG/100 ML BAG IVPB SCH ×2 (13:43→19:00)
[2020-04-23] MEDS: MIDAZOLAM IN 0.9 % SOD.CHLORID 100 MG/100 ML PLAST..BAG IVPB SCH ×2 (13:44→22:36)
[2020-04-23] MEDS: NOREPINEPHRINE D5W PREMIX 16,000 MCG/500 ML BAG IVPB SCH (16:52)
[2020-04-23] MEDS: AMINO ACIDS/PROTEIN HYDROLYS 30 ML LIQUID.PKT NGT SCH (16:57)
[2020-04-23] MEDS: VECURONIUM BROMIDE 100 MG/100 ML BAG IVPB SCH (16:57)
[2020-04-23] MEDS: CHLORHEXIDINE GLUCONATE 4% CLEANSER FOR DECOLONIZATION TP SCH (21:00)
[2020-04-23] MEDS: ACETAMINOPHEN 325 MG TABLET (FP) PO PRN (22:37)
[2020-04-24] MEDS: PROPOFOL 1,000,000 MCG/100 ML VIAL IVPB SCH ×4 (01:16→17:35)
[2020-04-24] MEDS: INSULIN (LEVEMIR) 100 UNITS/ML UNITS SQ SCH ×2 (07:01→22:46)
[2020-04-24] MEDS: INSULIN SLIDING SCALE (NOVOLOG) 1 VIAL SQ SCH ×4 (07:09→22:49)
[2020-04-24 07:54] LABS: HEMATOCRIT 39.3 % (35.4-49); HEMOGLOBIN 12.7 GM/dL (11.7-16.9); MCH 29.5 pg (25.7-33.7); MCHC 32.3 g/dl (32.0-35.9); MEAN CELL VOLUME 91.2 fl (80-96); MEAN PLT VOLUME 9.2 fl (7.5-11.1); PLATELET COUNT 237 K/MM3 (134-434); RBC 4.31 M/mm3 (4.00-5.60); RDW 13.2 % (11.9-15.9); WHITE BLOOD COUNT 18.7 K/mm3 (4.0-10.0)
[2020-04-24] MEDS: MIDAZOLAM IN 0.9 % SOD.CHLORID 100 MG/100 ML PLAST..BAG IVPB SCH ×3 (08:08→18:22)
[2020-04-24 08:09] LABS: POTASSIUM 5.1 mmol/L (3.5-5.1)
[2020-04-24 08:13] LABS: ALBUMIN 1.6 g/dl (3.4-5.0); CALCIUM 7.2 mg/dL (8.5-10.1)
[2020-04-24 08:14] LABS: BLOOD UREA NITROGEN 20.7 mg/dL (7-18)
[2020-04-24 08:16] LABS: CREATININE 0.5 mg/dL (0.55-1.3)
[2020-04-24 08:18] LABS: BILIRUBIN,TOTAL 0.6 mg/dL (0.2-1); TOT PROT 5.3 g/dl (6.4-8.2)
[2020-04-24] MEDS: AMINO ACIDS/PROTEIN HYDROLYS 30 ML LIQUID.PKT NGT SCH ×2 (08:56→17:10)
[2020-04-24] MEDS ORDERED: PT OWN MED DRAWER 7, Y5N ONE ×2 (09:43→13:07)
[2020-04-24] MEDS: MUPIROCIN 2% TOPICAL OINTMENT FOR DECOLONIZATION NS SCH ×2 (09:45→22:41)
[2020-04-24] MEDS: DEXAMETHASONE SOD PHOSPHATE 10 MG/1 ML VIAL IVPUSH SCH (09:45)
[2020-04-24] MEDS: ZINC SULFATE 220 MG CAPSULE (FP) PO SCH (09:48)
[2020-04-24] MEDS: ASCORBIC ACID 500 MG TABLET (FP) PO SCH (09:48)
[2020-04-24] MEDS: FAMOTIDINE 20 MG/50 ML IVPB 20 MG/50 ML MG IVPB SCH ×2 (09:48→22:41)
[2020-04-24] MEDS: APIXABAN 5 MG TABLET PO SCH ×2 (12:37→22:41)
[2020-04-24] MEDS: FENTANYL NS IVPB 500 MCG/100 ML BAG IVPB SCH ×2 (12:39→14:04)
[2020-04-24] MEDS: VECURONIUM BROMIDE 100 MG/100 ML BAG IVPB SCH (15:16)
[2020-04-24] MEDS: NOREPINEPHRINE D5W PREMIX 16,000 MCG/500 ML BAG IVPB SCH (15:16)
[2020-04-24] MEDS: REMDESIVIR 100 MG in SODIUM CHLORIDE 230 ML IVPB SCH (15:16)
[2020-04-24] MEDS: CHLORHEXIDINE GLUCONATE 4% CLEANSER FOR DECOLONIZATION TP SCH (22:41)
[2020-04-25] MEDS: FENTANYL NS IVPB 500 MCG/100 ML BAG IVPB SCH ×3 (04:55→22:20)
[2020-04-25] MEDS: MIDAZOLAM IN 0.9 % SOD.CHLORID 100 MG/100 ML PLAST..BAG IVPB SCH ×3 (04:55→22:20)
[2020-04-25] MEDS: PROPOFOL 1,000,000 MCG/100 ML VIAL IVPB SCH ×3 (04:55→22:20)
[2020-04-25 05:59] LABS: ARTERIAL BLD GAS O2 SATURATION 86.5 mmHg (95-98); ARTERIAL BLOOD GAS BASE EXCESS 4.7 mmol/L (-2-2); ARTERIAL BLOOD GAS PO2 56.1 mmHg (80-100); ARTERIAL BLOOD GAS pH 7.335 (7.350-7.450)
[2020-04-25 06:03] LABS: ALLENS TEST POSITIVE; VENT MODE A/C; VENT RATE 24
[2020-04-25] MEDS: INSULIN SLIDING SCALE (NOVOLOG) 1 VIAL SQ SCH ×4 (06:31→21:19)
[2020-04-25] MEDS: INSULIN (LEVEMIR) 100 UNITS/ML UNITS SQ SCH ×2 (06:31→21:19)
[2020-04-25 07:17] LABS: BASO % 0.2 % (0-2.0); HEMOGLOBIN 11.7 GM/dL (11.7-16.9); MCH 29.3 pg (25.7-33.7); MCHC 32.4 g/dl (32.0-35.9); MEAN CELL VOLUME 90.6 fl (80-96); MEAN PLT VOLUME 9.2 fl (7.5-11.1); MONO % 3.7 % (3.8-10.2); NEUT % 91.1 % (42.8-82.8); PLATELET COUNT 219 K/MM3 (134-434); RBC 3.98 M/mm3 (4.00-5.60); RDW 13.3 % (11.9-15.9); WHITE BLOOD COUNT 12.7 K/mm3 (4.0-10.0)
[2020-04-25 07:39] LABS: CALCIUM 7.5 mg/dL (8.5-10.1)
[2020-04-25 07:40] LABS: ALBUMIN 1.5 g/dl (3.4-5.0); BLOOD UREA NITROGEN 30.9 mg/dL (7-18); MAGNESIUM 2.5 mg/dL (1.8-2.4)
[2020-04-25 07:42] LABS: CREATININE 0.5 mg/dL (0.55-1.3)
[2020-04-25 07:43] LABS: PHOSPHOROUS 3.6 mg/dL (2.5-4.9)
[2020-04-25 07:44] LABS: BILIRUBIN,TOTAL 0.3 mg/dL (0.2-1); TOT PROT 5.1 g/dl (6.4-8.2)
[2020-04-25] MEDS: APIXABAN 5 MG TABLET PO SCH ×2 (09:13→21:19)
[2020-04-25] MEDS: DEXAMETHASONE SOD PHOSPHATE 10 MG/1 ML VIAL IVPUSH SCH (09:13)
[2020-04-25] MEDS: AMINO ACIDS/PROTEIN HYDROLYS 30 ML LIQUID.PKT NGT SCH ×2 (09:13→18:36)
[2020-04-25] MEDS: MUPIROCIN 2% TOPICAL OINTMENT FOR DECOLONIZATION NS SCH (09:13)
[2020-04-25] MEDS: FAMOTIDINE 20 MG/50 ML IVPB 20 MG/50 ML MG IVPB SCH ×2 (09:14→21:19)
[2020-04-25] MEDS: ASCORBIC ACID 500 MG TABLET (FP) PO SCH (09:14)
[2020-04-25] MEDS: ZINC SULFATE 220 MG CAPSULE (FP) PO SCH (09:14)
[2020-04-25 11:02] LABS: ANISOCYTOSIS 0; MACROCYTOSIS 0; PLATELET ESTIMATE NORMAL
[2020-04-25] MEDS ORDERED: MIDAZOLAM 100 MG/100 ML MG IVPB ONE ×2 (14:19→20:17)
[2020-04-25] MEDS: REMDESIVIR 100 MG in SODIUM CHLORIDE 230 ML IVPB SCH (14:43)
[2020-04-25] MEDS: NOREPINEPHRINE D5W PREMIX 16,000 MCG/500 ML BAG IVPB SCH (14:48)
[2020-04-25] MEDS: VECURONIUM BROMIDE 100 MG/100 ML BAG IVPB SCH (14:48)
[2020-04-25] MEDS: CHLORHEXIDINE GLUCONATE 4% CLEANSER FOR DECOLONIZATION TP SCH (21:19)
[2020-04-26] MEDS: PROPOFOL 1,000,000 MCG/100 ML VIAL IVPB SCH ×4 (00:05→19:50)
[2020-04-26] MEDS: INSULIN SLIDING SCALE (NOVOLOG) 1 VIAL SQ SCH ×4 (06:25→22:54)
[2020-04-26] MEDS: INSULIN (LEVEMIR) 100 UNITS/ML UNITS SQ SCH ×2 (06:25→22:54)
[2020-04-26] MEDS ORDERED: MIDAZOLAM 100 MG/100 ML MG IVPB ONE ×3 (07:03→19:48)
[2020-04-26] MEDS ORDERED: FENTANYL IVPB 500 MCG/100 ML BAG IVPB ONE (07:05)
[2020-04-26] MEDS: FENTANYL NS IVPB 500 MCG/100 ML BAG IVPB SCH ×2 (07:07→16:29)
[2020-04-26] MEDS: MIDAZOLAM IN 0.9 % SOD.CHLORID 100 MG/100 ML PLAST..BAG IVPB SCH ×2 (07:07→16:45)
[2020-04-26 10:09] LABS: BASO % 0.8 % (0-2.0); EOS % 1.6 % (0-4.5); HEMATOCRIT 38.5 % (35.4-49); HEMOGLOBIN 12.2 GM/dL (11.7-16.9); LYMPH % 12.9 % (8-40); MCH 29.1 pg (25.7-33.7); MCHC 31.7 g/dl (32.0-35.9); MEAN CELL VOLUME 91.9 fl (80-96); MEAN PLT VOLUME 9.2 fl (7.5-11.1); MONO % 6.5 % (3.8-10.2); NEUT % 78.2 % (42.8-82.8); PLATELET COUNT 214 K/MM3 (134-434); RBC 4.19 M/mm3 (4.00-5.60); RDW 13.4 % (11.9-15.9); WHITE BLOOD COUNT 16.3 K/mm3 (4.0-10.0)
[2020-04-26] MEDS: AMINO ACIDS/PROTEIN HYDROLYS 30 ML LIQUID.PKT NGT SCH (10:24)
[2020-04-26] MEDS: FAMOTIDINE 20 MG/50 ML IVPB 20 MG/50 ML MG IVPB SCH ×2 (10:24→22:54)
[2020-04-26] MEDS: ZINC SULFATE 220 MG CAPSULE (FP) PO SCH (10:24)
[2020-04-26] MEDS: DEXAMETHASONE SOD PHOSPHATE 10 MG/1 ML VIAL IVPUSH SCH (10:24)
[2020-04-26] MEDS: APIXABAN 5 MG TABLET PO SCH ×2 (10:24→22:16)
[2020-04-26] MEDS: ASCORBIC ACID 500 MG TABLET (FP) PO SCH (10:24)
[2020-04-26 10:32] LABS: POTASSIUM 4.4 mmol/L (3.5-5.1)
[2020-04-26 10:34] LABS: BLOOD UREA NITROGEN 37.1 mg/dL (7-18); CALCIUM 8.5 mg/dL (8.5-10.1)
[2020-04-26 10:35] LABS: ALBUMIN 1.6 g/dl (3.4-5.0); MAGNESIUM 2.2 mg/dL (1.8-2.4)
[2020-04-26 10:38] LABS: CREATININE 0.6 mg/dL (0.55-1.3); PHOSPHOROUS 3.5 mg/dL (2.5-4.9)
[2020-04-26 10:39] LABS: BILIRUBIN,TOTAL 0.2 mg/dL (0.2-1)
[2020-04-26] MEDS ORDERED: PT OWN MED DRAWER 7, Y5N ONE (13:34)
[2020-04-26] MEDS: REMDESIVIR 100 MG in SODIUM CHLORIDE 230 ML IVPB SCH (13:50)
[2020-04-26] MEDS: VECURONIUM BROMIDE 100 MG/100 ML BAG IVPB SCH (22:15)
[2020-04-26] MEDS: NOREPINEPHRINE D5W PREMIX 16,000 MCG/500 ML BAG IVPB SCH (22:15)
[2020-04-26] MEDS: CHLORHEXIDINE GLUCONATE 4% CLEANSER FOR DECOLONIZATION TP SCH (22:16)
[2020-04-27] MEDS: PROPOFOL 1,000,000 MCG/100 ML VIAL IVPB SCH ×5 (00:59→21:13)
[2020-04-27] MEDS: MIDAZOLAM IN 0.9 % SOD.CHLORID 100 MG/100 ML PLAST..BAG IVPB SCH ×3 (05:30→17:34)
[2020-04-27] MEDS: INSULIN (LEVEMIR) 100 UNITS/ML UNITS SQ SCH ×2 (06:17→21:12)
[2020-04-27] MEDS: INSULIN SLIDING SCALE (NOVOLOG) 1 VIAL SQ SCH ×4 (06:18→21:35)
[2020-04-27 07:40] LABS: BASO % 0.3 % (0-2.0); EOS % 1.1 % (0-4.5); HEMATOCRIT 36.2 % (35.4-49); HEMOGLOBIN 11.8 GM/dL (11.7-16.9); LYMPH % 11.8 % (8-40); MCH 29.5 pg (25.7-33.7); MCHC 32.6 g/dl (32.0-35.9); MEAN CELL VOLUME 90.5 fl (80-96); MEAN PLT VOLUME 9.3 fl (7.5-11.1); MONO % 6.6 % (3.8-10.2); NEUT % 80.2 % (42.8-82.8); PLATELET COUNT 232 K/MM3 (134-434); RDW 13.5 % (11.9-15.9); WHITE BLOOD COUNT 12.6 K/mm3 (4.0-10.0)
[2020-04-27 07:55] LABS: POTASSIUM 4.6 mmol/L (3.5-5.1)
[2020-04-27 08:00] LABS: CALCIUM 7.7 mg/dL (8.5-10.1)
[2020-04-27 08:01] LABS: ALBUMIN 1.6 g/dl (3.4-5.0); BLOOD UREA NITROGEN 26.8 mg/dL (7-18); MAGNESIUM 1.9 mg/dL (1.8-2.4)
[2020-04-27 08:04] LABS: CREATININE 0.4 mg/dL (0.55-1.3); PHOSPHOROUS 3.9 mg/dL (2.5-4.9)
[2020-04-27 08:05] LABS: BILIRUBIN,TOTAL 0.3 mg/dL (0.2-1); TOT PROT 4.9 g/dl (6.4-8.2)
[2020-04-27] MEDS: AMINO ACIDS/PROTEIN HYDROLYS 30 ML LIQUID.PKT NGT SCH (08:39)
[2020-04-27] MEDS: ASCORBIC ACID 500 MG TABLET (FP) PO SCH (09:22)
[2020-04-27] MEDS: FAMOTIDINE 20 MG/50 ML IVPB 20 MG/50 ML MG IVPB SCH ×2 (09:22→21:13)
[2020-04-27] MEDS: APIXABAN 5 MG TABLET PO SCH ×2 (09:22→21:12)
[2020-04-27] MEDS: ZINC SULFATE 220 MG CAPSULE (FP) PO SCH (09:22)
[2020-04-27] MEDS: DEXAMETHASONE SOD PHOSPHATE 10 MG/1 ML VIAL IVPUSH SCH (09:27)
[2020-04-27] MEDS: VECURONIUM BROMIDE 100 MG/100 ML BAG IVPB SCH (13:12)
[2020-04-27] MEDS: REMDESIVIR 100 MG in SODIUM CHLORIDE 230 ML IVPB SCH (13:21)
[2020-04-27] MEDS ORDERED: MIDAZOLAM 100 MG/100 ML MG IVPB ONE ×2 (17:19→20:57)
[2020-04-27] MEDS: FENTANYL NS IVPB 500 MCG/100 ML BAG IVPB SCH ×2 (17:21→17:35)
[2020-04-27] MEDS: NOREPINEPHRINE D5W PREMIX 16,000 MCG/500 ML BAG IVPB SCH (17:27)
[2020-04-27] MEDS: CHLORHEXIDINE GLUCONATE 4% CLEANSER FOR DECOLONIZATION TP SCH (21:12)
[2020-04-28] MEDS: PROPOFOL 1,000,000 MCG/100 ML VIAL IVPB SCH ×7 (03:15→22:37)
[2020-04-28] MEDS: INSULIN (LEVEMIR) 100 UNITS/ML UNITS SQ SCH ×2 (06:32→22:43)
[2020-04-28] MEDS: INSULIN SLIDING SCALE (NOVOLOG) 1 VIAL SQ SCH ×4 (06:35→23:39)
[2020-04-28 07:49] LABS: BASO % 0.3 % (0-2.0); EOS % 1.2 % (0-4.5); HEMATOCRIT 40.7 % (35.4-49); HEMOGLOBIN 13.2 GM/dL (11.7-16.9); LYMPH % 6.4 % (8-40); MCH 29.4 pg (25.7-33.7); MCHC 32.4 g/dl (32.0-35.9); MEAN CELL VOLUME 90.7 fl (80-96); MEAN PLT VOLUME 9.4 fl (7.5-11.1); NEUT % 90.1 % (42.8-82.8); PLATELET COUNT 286 K/MM3 (134-434); RBC 4.49 M/mm3 (4.00-5.60); RDW 13.6 % (11.9-15.9); WHITE BLOOD COUNT 25.8 K/mm3 (4.0-10.0)
[2020-04-28 08:15] LABS: POTASSIUM 4.3 mmol/L (3.5-5.1)
[2020-04-28 08:23] LABS: CALCIUM 7.7 mg/dL (8.5-10.1)
[2020-04-28 08:24] LABS: ALBUMIN 1.8 g/dl (3.4-5.0); BLOOD UREA NITROGEN 23.1 mg/dL (7-18); MAGNESIUM 1.8 mg/dL (1.8-2.4)
[2020-04-28 08:27] LABS: CREATININE 0.4 mg/dL (0.55-1.3)
[2020-04-28 08:28] LABS: BILIRUBIN,TOTAL 0.5 mg/dL (0.2-1); PHOSPHOROUS 4.3 mg/dL (2.5-4.9); TOT PROT 5.5 g/dl (6.4-8.2)
[2020-04-28 09:18] LABS: ANISOCYTOSIS 0; HELMET CELLS 0; HOWELL-JOLLY BODIES 0; MACROCYTOSIS 0; OVALOCYTE 0; PLATELET ESTIMATE NORMAL; ROULEAU 0; SICKELED CELLS 0; TARGET CELLS 0; TEAR DROP CELLS 0; TOXIC GRANULATION 0
[2020-04-28] MEDS: ASCORBIC ACID 500 MG TABLET (FP) PO SCH (09:42)
[2020-04-28] MEDS: ZINC SULFATE 220 MG CAPSULE (FP) PO SCH (09:42)
[2020-04-28] MEDS: APIXABAN 5 MG TABLET PO SCH ×2 (09:42→22:40)
[2020-04-28] MEDS: DEXAMETHASONE SOD PHOSPHATE 10 MG/1 ML VIAL IVPUSH SCH (09:43)
[2020-04-28] MEDS: AMINO ACIDS/PROTEIN HYDROLYS 30 ML LIQUID.PKT NGT SCH (09:44)
[2020-04-28] MEDS: FAMOTIDINE 20 MG/50 ML IVPB 20 MG/50 ML MG IVPB SCH ×2 (10:16→22:44)
[2020-04-28] MEDS: ACETAMINOPHEN 325 MG TABLET (FP) PO PRN (12:09)
[2020-04-28] MEDS: REMDESIVIR 100 MG in SODIUM CHLORIDE 230 ML IVPB SCH (14:09)
[2020-04-28] MEDS: MIDAZOLAM IN 0.9 % SOD.CHLORID 100 MG/100 ML PLAST..BAG IVPB SCH ×2 (14:10→15:11)
[2020-04-28] MEDS ORDERED: MIDAZOLAM 100 MG/100 ML MG IVPB ONE ×2 (14:13→19:41)
[2020-04-28] MEDS: NOREPINEPHRINE D5W PREMIX 16,000 MCG/500 ML BAG IVPB SCH (14:25)
[2020-04-28] MEDS: FENTANYL NS IVPB 500 MCG/100 ML BAG IVPB SCH (15:10)
[2020-04-28] MEDS: VECURONIUM BROMIDE 100 MG/100 ML BAG IVPB SCH (22:40)
[2020-04-28] MEDS: CHLORHEXIDINE GLUCONATE 4% CLEANSER FOR DECOLONIZATION TP SCH (22:40)
[2020-04-29] MEDS: PROPOFOL 1,000,000 MCG/100 ML VIAL IVPB SCH ×6 (01:00→22:10)
[2020-04-29] MEDS: VECURONIUM BROMIDE 100 MG/100 ML BAG IVPB SCH ×2 (02:50→19:43)
[2020-04-29] MEDS: MIDAZOLAM IN 0.9 % SOD.CHLORID 100 MG/100 ML PLAST..BAG IVPB SCH ×2 (02:50→19:27)
[2020-04-29] MEDS: FENTANYL NS IVPB 500 MCG/100 ML BAG IVPB SCH ×2 (02:51→19:43)
[2020-04-29] MEDS: INSULIN (LEVEMIR) 100 UNITS/ML UNITS SQ SCH ×2 (06:45→20:59)
[2020-04-29] MEDS: INSULIN SLIDING SCALE (NOVOLOG) 1 VIAL SQ SCH ×4 (06:45→21:19)
[2020-04-29 07:17] LABS: BASO % 0.3 % (0-2.0); EOS % 1.7 % (0-4.5); HEMATOCRIT 35.4 % (35.4-49); HEMOGLOBIN 11.3 GM/dL (11.7-16.9); LYMPH % 5.3 % (8-40); MCH 29.1 pg (25.7-33.7); MCHC 31.8 g/dl (32.0-35.9); MEAN CELL VOLUME 91.7 fl (80-96); MEAN PLT VOLUME 9.5 fl (7.5-11.1); MONO % 2.7 % (3.8-10.2); PLATELET COUNT 226 K/MM3 (134-434); RBC 3.86 M/mm3 (4.00-5.60); RDW 13.8 % (11.9-15.9); WHITE BLOOD COUNT 23.8 K/mm3 (4.0-10.0)
[2020-04-29] MEDS ORDERED: MIDAZOLAM 100 MG/100 ML MG IVPB ONE ×2 (07:37→16:30)
[2020-04-29 07:41] LABS: POTASSIUM 4.9 mmol/L (3.5-5.1)
[2020-04-29 07:44] LABS: ALBUMIN 1.5 g/dl (3.4-5.0); CALCIUM 7.4 mg/dL (8.5-10.1); MAGNESIUM 2.1 mg/dL (1.8-2.4)
[2020-04-29 07:47] LABS: BILIRUBIN,TOTAL 0.3 mg/dL (0.2-1); CREATININE 1.2 mg/dL (0.55-1.3); PHOSPHOROUS 6.7 mg/dL (2.5-4.9)
[2020-04-29 07:48] LABS: TOT PROT 4.8 g/dl (6.4-8.2)
[2020-04-29 08:00] LABS: BLOOD UREA NITROGEN 52.1 mg/dL (7-18)
[2020-04-29] MEDS: AMINO ACIDS/PROTEIN HYDROLYS 30 ML LIQUID.PKT NGT SCH (08:04)
[2020-04-29] MEDS: ASCORBIC ACID 500 MG TABLET (FP) PO SCH (09:04)
[2020-04-29] MEDS: ZINC SULFATE 220 MG CAPSULE (FP) PO SCH (09:04)
[2020-04-29] MEDS: APIXABAN 5 MG TABLET PO SCH ×2 (09:04→20:59)
[2020-04-29] MEDS: FAMOTIDINE 20 MG/50 ML IVPB 20 MG/50 ML MG IVPB SCH ×2 (09:05→21:00)
[2020-04-29] MEDS: DEXAMETHASONE SOD PHOSPHATE 10 MG/1 ML VIAL IVPUSH SCH (09:06)
[2020-04-29 09:33] LABS: ANISOCYTOSIS 1+; MACROCYTOSIS 0; PLATELET ESTIMATE NORMAL
[2020-04-29] MEDS: NOREPINEPHRINE D5W PREMIX 16,000 MCG/500 ML BAG IVPB SCH ×2 (19:29→19:30)
[2020-04-29] MEDS: CHLORHEXIDINE GLUCONATE 4% CLEANSER FOR DECOLONIZATION TP SCH (20:59)
[2020-04-30] MEDS ORDERED: MIDAZOLAM 100 MG/100 ML MG IVPB ONE ×3 (01:11→20:07)
[2020-04-30] MEDS: PROPOFOL 1,000,000 MCG/100 ML VIAL IVPB SCH ×6 (01:21→21:12)
[2020-04-30] MEDS: MIDAZOLAM IN 0.9 % SOD.CHLORID 100 MG/100 ML PLAST..BAG IVPB SCH ×3 (05:18→17:06)
[2020-04-30] MEDS: FENTANYL NS IVPB 500 MCG/100 ML BAG IVPB SCH ×3 (05:18→17:07)
[2020-04-30] MEDS: INSULIN (LEVEMIR) 100 UNITS/ML UNITS SQ SCH ×2 (06:57→21:11)
[2020-04-30] MEDS: INSULIN SLIDING SCALE (NOVOLOG) 1 VIAL SQ SCH ×4 (06:57→21:11)
[2020-04-30] MEDS: AMINO ACIDS/PROTEIN HYDROLYS 30 ML LIQUID.PKT NGT SCH (08:00)
[2020-04-30 09:22] LABS: BASO % 0.2 % (0-2.0); HEMATOCRIT 34.5 % (35.4-49); LYMPH % 2.2 % (8-40); MCH 29.3 pg (25.7-33.7); MEAN CELL VOLUME 91.5 fl (80-96); MEAN PLT VOLUME 8.9 fl (7.5-11.1); MONO % 3.2 % (3.8-10.2); NEUT % 94.4 % (42.8-82.8); PLATELET COUNT 245 K/MM3 (134-434); RBC 3.76 M/mm3 (4.00-5.60); RDW 13.8 % (11.9-15.9); WHITE BLOOD COUNT 24.9 K/mm3 (4.0-10.0)
[2020-04-30] MEDS: DEXAMETHASONE SOD PHOSPHATE 10 MG/1 ML VIAL IVPUSH SCH (09:39)
[2020-04-30] MEDS: APIXABAN 5 MG TABLET PO SCH ×2 (09:39→21:11)
[2020-04-30] MEDS: ZINC SULFATE 220 MG CAPSULE (FP) PO SCH (09:39)
[2020-04-30] MEDS: FAMOTIDINE 20 MG/50 ML IVPB 20 MG/50 ML MG IVPB SCH ×2 (09:40→21:12)
[2020-04-30 09:45] LABS: POTASSIUM 5.5 mmol/L (3.5-5.1)
[2020-04-30 09:50] LABS: ALBUMIN 1.5 g/dl (3.4-5.0); CALCIUM 7.5 mg/dL (8.5-10.1)
[2020-04-30 09:54] LABS: BILIRUBIN,TOTAL 0.4 mg/dL (0.2-1); CREATININE 2.1 mg/dL (0.55-1.3)
[2020-04-30 10:02] LABS: BLOOD UREA NITROGEN 89.1 mg/dL (7-18)
[2020-04-30] MEDS: ASCORBIC ACID 500 MG TABLET (FP) PO SCH (10:30)
[2020-04-30 11:15] LABS: ARTERIAL BLD GAS O2 SATURATION 94.2 mmHg (95-98); ARTERIAL BLOOD GAS PO2 90.9 mmHg (80-100); ARTERIAL BLOOD GAS pH 7.154 (7.350-7.450)
[2020-04-30 11:16] LABS: ALLENS TEST POSITIVE
[2020-04-30 11:17] LABS: VENT RATE 24
[2020-04-30 11:45] LABS: ANISOCYTOSIS 0; MACROCYTOSIS 0; PLATELET ESTIMATE NORMAL
[2020-04-30] MEDS ORDERED: SODIUM CHLORIDE 1,000 ML IV SCH (12:15)
[2020-04-30] MEDS ORDERED: ACETAMINOPHEN 650 MG/20.3 ML ORAL SOLUTION (CUPS) GT PRN (13:58)
[2020-04-30] MEDS: SODIUM BICARBONATE 8.4% 50 MEQ/50 ML VIAL IV SCH ×3 (14:02→21:10)
[2020-04-30] MEDS ORDERED: PT OWN MED DRAWER 7, Y5N ONE (14:47)
[2020-04-30] MEDS: VECURONIUM BROMIDE 100 MG/100 ML BAG IVPB SCH (15:00)
[2020-04-30] MEDS: LACTATED RINGERS SOLUTION 1,000 ML/1,000 ML INFUS.BAG IV SCH (17:00)
[2020-04-30] MEDS: ASCORBIC ACID 500 MG/5 ML UNIT DOSE CUP GT SCH (17:02)
[2020-04-30] MEDS: SODIUM ZIRCONIUM CYCLOSILICATE (LOKELMA) 5 GM PACKET PO SCH (17:02)
[2020-04-30 19:12] LABS: URINE APPEARANCE CLOUDY; URINE BILIRUBIN NEGATIVE (NEGATIVE); URINE COLOR YELLOW; URINE GLUCOSE (UA) NEGATIVE (NEGATIVE); URINE KETONE NEGATIVE (NEGATIVE); URINE LEUK ESTERASE NEGATIVE (NEGATIVE); URINE NITRITE NEGATIVE (NEGATIVE); URINE PROTEIN NEGATIVE (NEGATIVE)
[2020-04-30] MEDS: CHLORHEXIDINE GLUCONATE 4% CLEANSER FOR DECOLONIZATION TP SCH (21:11)
[2020-05-01] MEDS: PROPOFOL 1,000,000 MCG/100 ML VIAL IVPB SCH ×6 (00:05→16:15)
[2020-05-01] MEDS: MIDAZOLAM IN 0.9 % SOD.CHLORID 100 MG/100 ML PLAST..BAG IVPB SCH ×2 (04:32→14:55)
[2020-05-01] MEDS: FENTANYL NS IVPB 500 MCG/100 ML BAG IVPB SCH ×2 (04:32→14:30)
[2020-05-01] MEDS: LACTATED RINGERS SOLUTION 1,000 ML/1,000 ML INFUS.BAG IV SCH ×2 (04:33→15:45)
[2020-05-01] MEDS: INSULIN (LEVEMIR) 100 UNITS/ML UNITS SQ SCH ×2 (06:25→21:56)
[2020-05-01] MEDS: INSULIN SLIDING SCALE (NOVOLOG) 1 VIAL SQ SCH ×4 (06:30→22:25)
[2020-05-01 06:47] LABS: BASO % 0.2 % (0-2.0); EOS % 1.1 % (0-4.5); HEMATOCRIT 34.2 % (35.4-49); HEMOGLOBIN 10.9 GM/dL (11.7-16.9); LYMPH % 5.3 % (8-40); MCHC 31.9 g/dl (32.0-35.9); MEAN PLT VOLUME 8.9 fl (7.5-11.1); MONO % 2.5 % (3.8-10.2); NEUT % 90.9 % (42.8-82.8); PLATELET COUNT 237 K/MM3 (134-434); RBC 3.76 M/mm3 (4.00-5.60); RDW 14.3 % (11.9-15.9); WHITE BLOOD COUNT 20.5 K/mm3 (4.0-10.0)
[2020-05-01 07:08] LABS: POTASSIUM 4.7 mmol/L (3.5-5.1)
[2020-05-01 07:14] LABS: ALBUMIN 1.5 g/dl (3.4-5.0); CALCIUM 7.4 mg/dL (8.5-10.1)
[2020-05-01 07:16] LABS: BLOOD UREA NITROGEN 100.9 mg/dL (7-18)
[2020-05-01 07:17] LABS: CREATININE 2.4 mg/dL (0.55-1.3)
[2020-05-01 07:18] LABS: TOT PROT 4.8 g/dl (6.4-8.2)
[2020-05-01 07:24] LABS: BILIRUBIN,TOTAL 0.6 mg/dL (0.2-1)
[2020-05-01] MEDS: AMINO ACIDS/PROTEIN HYDROLYS 30 ML LIQUID.PKT NGT SCH (07:47)
[2020-05-01] MEDS ORDERED: PT OWN MED DRAWER 7, Y5N ONE (09:03)
[2020-05-01] MEDS: ZINC SULFATE 220 MG CAPSULE (FP) PO SCH (09:05)
[2020-05-01] MEDS: APIXABAN 5 MG TABLET PO SCH (09:05)
[2020-05-01] MEDS: SODIUM ZIRCONIUM CYCLOSILICATE (LOKELMA) 5 GM PACKET PO SCH (09:06)
[2020-05-01] MEDS: DEXAMETHASONE SOD PHOSPHATE 10 MG/1 ML VIAL IVPUSH SCH (09:06)
[2020-05-01] MEDS: ASCORBIC ACID 500 MG/5 ML UNIT DOSE CUP GT SCH (09:07)
[2020-05-01] MEDS: FAMOTIDINE 20 MG/50 ML IVPB 20 MG/50 ML MG IVPB SCH ×2 (09:07→21:56)
[2020-05-01] MEDS: SODIUM BICARBONATE 8.4% 50 MEQ/50 ML VIAL IV SCH (09:07)
[2020-05-01] MEDS: SODIUM BICARBONATE 8.4% 50 MEQ/50 ML VIAL IVPUSH SCH ×4 (09:33→21:57)
[2020-05-01 10:56] LABS: ANISOCYTOSIS 1+; MACROCYTOSIS 0; PLATELET ESTIMATE NORMAL; TEAR DROP CELLS 1+; TOXIC GRANULATION 2+
[2020-05-01] MEDS ORDERED: APIXABAN 2.5 MG TABLET PO SCH (11:16)
[2020-05-01] MEDS: NOREPINEPHRINE BITARTRATE 8,000 MCG/500 ML BAG IVPB SCH (12:50)
[2020-05-01] MEDS ORDERED: DOCUSATE NA 100 MG/10 ML UNIT-DOSE CUPS PO PRN (14:35)
[2020-05-01] MEDS: VECURONIUM BROMIDE 100 MG/100 ML BAG IVPB SCH (15:00)
[2020-05-01] MEDS ORDERED: MIDAZOLAM 100 MG/100 ML MG IVPB ONE ×2 (15:09→21:46)
[2020-05-01] MEDS ORDERED: FUROSEMIDE 40 MG/4 ML INJECTABLE VIAL IVPUSH ONE (15:45)
[2020-05-01] MEDS: CHLORHEXIDINE GLUCONATE 4% CLEANSER FOR DECOLONIZATION TP SCH (21:54)
[2020-05-01] MEDS: APIXABAN 2.5 MG TABLET GT SCH (21:54)
[2020-05-02] MEDS: FENTANYL NS IVPB 500 MCG/100 ML BAG IVPB SCH ×2 (01:00→11:30)
[2020-05-02] MEDS: PROPOFOL 1,000,000 MCG/100 ML VIAL IVPB SCH ×2 (01:00→10:31)
[2020-05-02] MEDS: MIDAZOLAM IN 0.9 % SOD.CHLORID 100 MG/100 ML PLAST..BAG IVPB SCH ×2 (03:37→10:08)
[2020-05-02] MEDS: INSULIN (LEVEMIR) 100 UNITS/ML UNITS SQ SCH (06:27)
[2020-05-02] MEDS: INSULIN SLIDING SCALE (NOVOLOG) 1 VIAL SQ SCH ×3 (06:41→17:00)
[2020-05-02 07:30] LABS: BASO % 0.1 % (0-2.0); EOS % 0.3 % (0-4.5); HEMATOCRIT 34.7 % (35.4-49); HEMOGLOBIN 11.3 GM/dL (11.7-16.9); LYMPH % 2.3 % (8-40); MCH 29.4 pg (25.7-33.7); MCHC 32.7 g/dl (32.0-35.9); MEAN PLT VOLUME 8.6 fl (7.5-11.1); MONO % 3.8 % (3.8-10.2); NEUT % 93.5 % (42.8-82.8); PLATELET COUNT 284 K/MM3 (134-434); RBC 3.85 M/mm3 (4.00-5.60); RDW 14.5 % (11.9-15.9); WHITE BLOOD COUNT 25.9 K/mm3 (4.0-10.0)
[2020-05-02 07:43] LABS: CHLORIDE 96 mmol/L (98-107); POTASSIUM 5.3 mmol/L (3.5-5.1); SODIUM 139 mmol/L (136-145)
[2020-05-02 07:45] LABS: CALCIUM 7.2 mg/dL (8.5-10.1)
[2020-05-02 07:46] LABS: ALBUMIN 1.5 g/dl (3.4-5.0); ANION GAP 12 MMOL/L (8-16); CO2 31 mmol/L (21-32); GLUCOSE,RANDOM 64 mg/dL (74-106); MAGNESIUM 2.7 mg/dL (1.8-2.4)
[2020-05-02 07:49] LABS: CREATININE 2.9 mg/dL (0.55-1.3); SGOT/AST 94 U/L (15-37); SGPT/ALT 107 U/L (13-61)
[2020-05-02 07:50] LABS: BILIRUBIN,TOTAL 0.9 mg/dL (0.2-1); TOT PROT 4.9 g/dl (6.4-8.2)
[2020-05-02 07:51] LABS: LDH 454 U/L (87-246)
[2020-05-02 07:57] LABS: ALK PHOS 358 U/L (45-117)
[2020-05-02 08:02] LABS: BLOOD UREA NITROGEN 124.4 mg/dL (7-18); PHOSPHOROUS > 9.0 mg/dL (2.5-4.9)
[2020-05-02] MEDS ORDERED: SODIUM ZIRCONIUM CYCLOSILICATE (LOKELMA) 5 GM PACKET PO ONE (08:16)
[2020-05-02] MEDS ORDERED: CALCIUM GLUCONATE 10% - 1,000 MG/10 ML VIAL IVPUSH ONE (08:17)
[2020-05-02 08:55] LABS: ANISOCYTOSIS 0; MACROCYTOSIS 0; PLATELET ESTIMATE NORMAL
[2020-05-02] MEDS: AMINO ACIDS/PROTEIN HYDROLYS 30 ML LIQUID.PKT NGT SCH (09:00)
[2020-05-02] MEDS: DEXAMETHASONE SOD PHOSPHATE 10 MG/1 ML VIAL IVPUSH SCH (09:33)
[2020-05-02] MEDS: ZINC SULFATE 220 MG CAPSULE (FP) PO SCH (09:34)
[2020-05-02] MEDS: APIXABAN 2.5 MG TABLET GT SCH (09:34)
[2020-05-02] MEDS: FAMOTIDINE 20 MG/50 ML IVPB 20 MG/50 ML MG IVPB SCH (10:07)
[2020-05-02] MEDS: SODIUM BICARBONATE 8.4% 50 MEQ/50 ML VIAL IVPUSH SCH ×3 (10:07→17:23)
[2020-05-02] MEDS: ASCORBIC ACID 500 MG/5 ML UNIT DOSE CUP GT SCH (10:08)
[2020-05-02] MEDS ORDERED: MIDAZOLAM 100 MG/100 ML MG IVPB ONE ×2 (11:10→20:47)
[2020-05-02 11:29] LABS: ARTERIAL BLD GAS O2 SATURATION 91.4 mmHg (95-98); ARTERIAL BLOOD GAS BASE EXCESS -1.3 mmol/L (-2-2); ARTERIAL BLOOD GAS PO2 76.9 mmHg (80-100)
[2020-05-02 11:31] LABS: ALLENS TEST POSITIVE
[2020-05-02 11:32] LABS: VENT MODE VOL/AC; VENT RATE 24
[2020-05-02 11:34] LABS: ARTERIAL BLOOD GAS pH 7.186 (7.350-7.450)
[2020-05-02] MEDS: SEVELAMER CARBONATE 800 MG TAB (FP) PO SCH ×2 (12:54→17:24)
[2020-05-02] MEDS: VECURONIUM BROMIDE 100 MG/100 ML BAG IVPB SCH (17:23)
[2020-05-03] MEDS: SODIUM BICARBONATE 8.4% 50 MEQ/50 ML VIAL IVPUSH SCH ×5 (00:10→21:44)
[2020-05-03] MEDS: FAMOTIDINE 20 MG/50 ML IVPB 20 MG/50 ML MG IVPB SCH ×4 (00:10→22:19)
[2020-05-03] MEDS: CHLORHEXIDINE GLUCONATE 4% CLEANSER FOR DECOLONIZATION TP SCH ×2 (00:10→21:44)
[2020-05-03] MEDS: INSULIN SLIDING SCALE (NOVOLOG) 1 VIAL SQ SCH ×5 (00:49→22:04)
[2020-05-03] MEDS: APIXABAN 2.5 MG TABLET GT SCH ×3 (00:49→21:44)
[2020-05-03] MEDS: INSULIN (LEVEMIR) 100 UNITS/ML UNITS SQ SCH ×3 (00:49→22:07)
[2020-05-03 05:48] LABS: ARTERIAL BLD GAS O2 SATURATION 86.4 mmHg (95-98); ARTERIAL BLOOD GAS BASE EXCESS -0.2 mmol/L (-2-2); ARTERIAL BLOOD GAS PO2 59.8 mmHg (80-100); ARTERIAL BLOOD GAS pH 7.262 (7.350-7.450)
[2020-05-03 05:49] LABS: ALLENS TEST POSITIVE
[2020-05-03 05:50] LABS: VENT MODE A/C; VENT RATE 24
[2020-05-03 06:59] LABS: INR 1.17 (0.83-1.09); PROTHROMBIN TIME (PATIENT) 14.3 SEC (9.7-13.0)
[2020-05-03 07:01] LABS: ACTIVATED PTT 30.7 SECONDS (25.2-36.5)
[2020-05-03 07:06] LABS: BASO % 0.2 % (0-2.0); EOS % 0.6 % (0-4.5); HEMATOCRIT 30.3 % (35.4-49); HEMOGLOBIN 9.8 GM/dL (11.7-16.9); LYMPH % 4.1 % (8-40); MCHC 32.3 g/dl (32.0-35.9); MEAN CELL VOLUME 89.9 fl (80-96); MEAN PLT VOLUME 8.6 fl (7.5-11.1); MONO % 3.3 % (3.8-10.2); NEUT % 91.8 % (42.8-82.8); PLATELET COUNT 246 K/MM3 (134-434); RBC 3.37 M/mm3 (4.00-5.60); RDW 14.4 % (11.9-15.9); WHITE BLOOD COUNT 23.3 K/mm3 (4.0-10.0)
[2020-05-03 07:17] LABS: POTASSIUM 5.2 mmol/L (3.5-5.1)
[2020-05-03 07:28] LABS: ALBUMIN 1.3 g/dl (3.4-5.0)
[2020-05-03 07:31] LABS: CREATININE 3.5 mg/dL (0.55-1.3)
[2020-05-03 07:33] LABS: BILIRUBIN,TOTAL 0.7 mg/dL (0.2-1); TOT PROT 4.7 g/dl (6.4-8.2)
[2020-05-03 07:55] LABS: ERYTHROCYTE SEDIMENTATION RATE 101 mm/hr (0-20)
[2020-05-03] MEDS: AMINO ACIDS/PROTEIN HYDROLYS 30 ML LIQUID.PKT NGT SCH (08:18)
[2020-05-03] MEDS: SEVELAMER CARBONATE 800 MG TAB (FP) PO SCH ×3 (08:19→17:07)
[2020-05-03 08:35] LABS: BLOOD UREA NITROGEN 147.7 mg/dL (7-18); CALCIUM 6.9 mg/dL (8.5-10.1)
[2020-05-03] MEDS: DEXAMETHASONE SOD PHOSPHATE 10 MG/1 ML VIAL IVPUSH SCH (09:05)
[2020-05-03] MEDS: PROPOFOL 1,000,000 MCG/100 ML VIAL IVPB SCH ×2 (09:05→15:00)
[2020-05-03] MEDS: ASCORBIC ACID 500 MG/5 ML UNIT DOSE CUP GT SCH (09:07)
[2020-05-03] MEDS: ZINC SULFATE 220 MG CAPSULE (FP) PO SCH (09:07)
[2020-05-03 11:18] LABS: ANISOCYTOSIS 0; MACROCYTOSIS 0; PLATELET ESTIMATE NORMAL
[2020-05-03] MEDS ORDERED: ROCURONIUM BROMIDE 50 MG/5 ML VIAL IVPUSH ONE (12:49)
[2020-05-03] MEDS ORDERED: FENTANYL NS IVPB 500 MCG/100 ML BAG IVPB ONE (13:38)
[2020-05-03] MEDS ORDERED: MIDAZOLAM 100 MG/100 ML MG IVPB ONE ×2 (13:39→21:09)
[2020-05-03] MEDS: NOREPINEPHRINE BITARTRATE 8,000 MCG/500 ML BAG IVPB SCH (15:00)
[2020-05-03] MEDS: FENTANYL NS IVPB 500 MCG/100 ML BAG IVPB SCH ×3 (15:00→22:20)
[2020-05-03] MEDS: VECURONIUM BROMIDE 100 MG/100 ML BAG IVPB SCH (15:00)
[2020-05-03] MEDS: MIDAZOLAM IN 0.9 % SOD.CHLORID 100 MG/100 ML PLAST..BAG IVPB SCH (15:00)
[2020-05-03] MEDS: SODIUM ZIRCONIUM CYCLOSILICATE (LOKELMA) 5 GM PACKET PO SCH (17:07)
[2020-05-03] MEDS ORDERED: FAMOTIDINE 40 MG/5 ML ORAL SUSPENSION PEG ONE (22:30)
[2020-05-04] MEDS: INSULIN (LEVEMIR) 100 UNITS/ML UNITS SQ SCH (06:04)
[2020-05-04] MEDS: INSULIN SLIDING SCALE (NOVOLOG) 1 VIAL SQ SCH ×4 (06:04→22:40)
[2020-05-04 07:28] LABS: CHLORIDE 93 mmol/L (98-107); SODIUM 139 mmol/L (136-145)
[2020-05-04 07:31] LABS: ALBUMIN 1.3 g/dl (3.4-5.0)
[2020-05-04 07:32] LABS: ANION GAP 12 MMOL/L (8-16); CO2 34 mmol/L (21-32); GLUCOSE,RANDOM 54 mg/dL (74-106)
[2020-05-04 07:35] LABS: CREATININE 4.1 mg/dL (0.55-1.3); SGOT/AST 51 U/L (15-37); SGPT/ALT 62 U/L (13-61)
[2020-05-04 07:36] LABS: BILIRUBIN,TOTAL 0.6 mg/dL (0.2-1); TOT PROT 4.7 g/dl (6.4-8.2)
[2020-05-04 07:38] LABS: ALK PHOS 285 U/L (45-117)
[2020-05-04] MEDS ORDERED: MIDAZOLAM 100 MG/100 ML MG IVPB ONE ×2 (07:48→17:59)
[2020-05-04] MEDS: AMINO ACIDS/PROTEIN HYDROLYS 30 ML LIQUID.PKT NGT SCH (07:54)
[2020-05-04 07:55] LABS: ACTIVATED PTT 30.4 SECONDS (25.2-36.5); PROTHROMBIN TIME (PATIENT) 12.1 SEC (9.7-13.0)
[2020-05-04] MEDS: SEVELAMER CARBONATE 800 MG TAB (FP) PO SCH ×3 (07:55→17:25)
[2020-05-04 07:57] LABS: BLOOD UREA NITROGEN > 150.0 mg/dL (7-18); PHOSPHOROUS > 9.0 mg/dL (2.5-4.9)
[2020-05-04 08:01] LABS: BASO % 0.3 % (0-2.0); EOS % 0.2 % (0-4.5); HEMATOCRIT 29.5 % (35.4-49); HEMOGLOBIN 9.6 GM/dL (11.7-16.9); LYMPH % 3.3 % (8-40); MCH 29.2 pg (25.7-33.7); MCHC 32.7 g/dl (32.0-35.9); MEAN CELL VOLUME 89.2 fl (80-96); MEAN PLT VOLUME 8.1 fl (7.5-11.1); MONO % 2.8 % (3.8-10.2); NEUT % 93.4 % (42.8-82.8); PLATELET COUNT 238 K/MM3 (134-434); RDW 14.7 % (11.9-15.9); WHITE BLOOD COUNT 22.5 K/mm3 (4.0-10.0)
[2020-05-04] MEDS ORDERED: DEXTROSE 50%-WATER - 25 GM/50 ML VIAL IVPUSH ONE (08:06)
[2020-05-04] MEDS ORDERED: DEXTROSE 50%-WATER 25 GM/50 ML DISP.SYRIN ONE (08:46)
[2020-05-04] MEDS: SODIUM BICARBONATE 8.4% 50 MEQ/50 ML VIAL IVPUSH SCH ×3 (09:44→17:25)
[2020-05-04] MEDS: DEXAMETHASONE SOD PHOSPHATE 10 MG/1 ML VIAL IVPUSH SCH (09:44)
[2020-05-04] MEDS: APIXABAN 2.5 MG TABLET GT SCH ×2 (09:45→21:28)
[2020-05-04] MEDS: SODIUM ZIRCONIUM CYCLOSILICATE (LOKELMA) 5 GM PACKET PO SCH (09:46)
[2020-05-04] MEDS: ASCORBIC ACID 500 MG/5 ML UNIT DOSE CUP GT SCH (09:46)
[2020-05-04] MEDS: ZINC SULFATE 220 MG CAPSULE (FP) PO SCH (09:46)
[2020-05-04] MEDS: FAMOTIDINE 40 MG/5 ML ORAL SUSPENSION PEG SCH (09:47)
[2020-05-04 11:14] LABS: PLATELET ESTIMATE ADEQUATE
[2020-05-04] MEDS: FENTANYL NS IVPB 500 MCG/100 ML BAG IVPB SCH (12:18)
[2020-05-04] MEDS ORDERED: VECURONIUM BROMIDE 100 MG/100 ML BAG ONE (14:31)
[2020-05-04] MEDS: VECURONIUM BROMIDE 100 MG/100 ML BAG IVPB SCH (15:03)
[2020-05-04] MEDS: CHLORHEXIDINE GLUCONATE 4% CLEANSER FOR DECOLONIZATION TP SCH (21:28)
[2020-05-05] MEDS: SODIUM BICARBONATE 8.4% 50 MEQ/50 ML VIAL IVPUSH SCH ×4 (01:44→17:48)
[2020-05-05] MEDS ORDERED: MIDAZOLAM 100 MG/100 ML MG IVPB ONE ×2 (05:27→14:55)
[2020-05-05] MEDS: PROPOFOL 1,000,000 MCG/100 ML VIAL IVPB SCH ×2 (06:24→10:52)
[2020-05-05] MEDS: FENTANYL NS IVPB 500 MCG/100 ML BAG IVPB SCH ×2 (06:25→17:38)
[2020-05-05] MEDS: INSULIN (LEVEMIR) 100 UNITS/ML UNITS SQ SCH (06:26)
[2020-05-05] MEDS: INSULIN SLIDING SCALE (NOVOLOG) 1 VIAL SQ SCH ×3 (06:26→16:55)
[2020-05-05 06:28] LABS: ALLENS TEST POSITIVE; ARTERIAL BLD GAS O2 SATURATION 72.1 mmHg (95-98); ARTERIAL BLOOD GAS BASE EXCESS 7.1 mmol/L (-2-2); ARTERIAL BLOOD GAS PO2 45.1 mmHg (80-100); ARTERIAL BLOOD GAS pH 7.264 (7.350-7.450)
[2020-05-05 06:29] LABS: VENT MODE A/C; VENT RATE 24
[2020-05-05 06:51] LABS: BASO % 0.3 % (0-2.0); EOS % 0.1 % (0-4.5); HEMATOCRIT 29.7 % (35.4-49); HEMOGLOBIN 9.8 GM/dL (11.7-16.9); MCH 29.7 pg (25.7-33.7); MEAN CELL VOLUME 89.9 fl (80-96); MEAN PLT VOLUME 8.4 fl (7.5-11.1); MONO % 1.6 % (3.8-10.2); PLATELET COUNT 226 K/MM3 (134-434); RBC 3.31 M/mm3 (4.00-5.60); RDW 14.5 % (11.9-15.9); WHITE BLOOD COUNT 18.3 K/mm3 (4.0-10.0)
[2020-05-05 07:07] LABS: POTASSIUM 5.4 mmol/L (3.5-5.1)
[2020-05-05 07:14] LABS: ALBUMIN 1.2 g/dl (3.4-5.0)
[2020-05-05 07:17] LABS: BILIRUBIN,TOTAL 0.6 mg/dL (0.2-1); CREATININE 4.3 mg/dL (0.55-1.3); TOT PROT 4.5 g/dl (6.4-8.2)
[2020-05-05 07:27] LABS: BLOOD UREA NITROGEN 188.2 mg/dL (7-18); CALCIUM 6.6 mg/dL (8.5-10.1)
[2020-05-05] MEDS ORDERED: PT OWN MED DRAWER 7, Y5N ONE (09:01)
[2020-05-05] MEDS: AMINO ACIDS/PROTEIN HYDROLYS 30 ML LIQUID.PKT NGT SCH (09:06)
[2020-05-05] MEDS: SEVELAMER CARBONATE 800 MG TAB (FP) PO SCH ×3 (09:06→17:38)
[2020-05-05] MEDS: DEXAMETHASONE SOD PHOSPHATE 10 MG/1 ML VIAL IVPUSH SCH (09:07)
[2020-05-05] MEDS: APIXABAN 2.5 MG TABLET GT SCH (09:08)
[2020-05-05] MEDS: ZINC SULFATE 220 MG CAPSULE (FP) PO SCH (09:08)
[2020-05-05] MEDS: FAMOTIDINE 40 MG/5 ML ORAL SUSPENSION PEG SCH (09:09)
[2020-05-05] MEDS: ASCORBIC ACID 500 MG/5 ML UNIT DOSE CUP GT SCH (09:09)
[2020-05-05] MEDS: VECURONIUM BROMIDE 100 MG/100 ML BAG IVPB SCH ×2 (12:43→15:00)
[2020-05-05 12:58] LABS: ANISOCYTOSIS 0; MACROCYTOSIS 0; PLATELET ESTIMATE NORMAL
[2020-05-05 15:05] VITALS: BMI 31.8
[2020-05-05] MEDS ORDERED: SODIUM ZIRCONIUM CYCLOSILICATE (LOKELMA) 5 GM PACKET PO SCH (17:15)
[2020-05-05] MEDS: NOREPINEPHRINE BITARTRATE 8,000 MCG/500 ML BAG IVPB SCH (19:23)
[2020-05-05] MEDS ORDERED: EPINEPHrine 1:10,000 (P-F SYR) 1 MG/10 ML DISP.SYRIN ONE (21:50)
[2020-05-06 00:32] VITALS: BP 0/0; PULSE 20; TEMP 91.6
== END 2020-05-05 23:20 | disposition expired | DRG 951 ==
LOC: JER 12:25 → JERBED 18:29 → J6WEST-2 04-10 06:42 → J4W 04-10 17:22 → JICU 04-17 11:03
PROVIDERS: ADMIT Internal Medicine; ATTEND Internal Medicine
PROC: 8E0ZXY6 Isolation (ICD-10-PCS; 2020-04-09)
PROC: XW13325 Transfusion of Convalescent Plasma (Nonautologous) into Peripheral Vein, Percutaneous Approach, New Technology Group 5 (ICD-10-PCS; principal; 2020-04-10)
PROC: XW033E5 Introduction of Remdesivir Anti-infective into Peripheral Vein, Percutaneous Approach, New Technology Group 5 (ICD-10-PCS; 2020-04-10)
PROC: 0CHY7BZ Insertion of Airway into Mouth and Throat, Via Natural or Artificial Opening (ICD-10-PCS; 2020-04-18)
PROC: 5A1955Z Respiratory Ventilation, Greater than 96 Consecutive Hours (ICD-10-PCS; 2020-04-18)
PROC: 0W9930Z Drainage of Right Pleural Cavity with Drainage Device, Percutaneous Approach (ICD-10-PCS; 2020-04-18)
PROC: 05HM33Z Insertion of Infusion Device into Right Internal Jugular Vein, Percutaneous Approach (ICD-10-PCS; 2020-04-18)
PROC: B543ZZA Ultrasonography of Right Jugular Veins, Guidance (ICD-10-PCS; 2020-04-18)
PROC: 0DH673Z Insertion of Infusion Device into Stomach, Via Natural or Artificial Opening (ICD-10-PCS; 2020-04-18)
PROC: 0W9930Z Drainage of Right Pleural Cavity with Drainage Device, Percutaneous Approach (ICD-10-PCS; 2020-04-19)
PROC: 0W9B30Z Drainage of Left Pleural Cavity with Drainage Device, Percutaneous Approach (ICD-10-PCS; 2020-04-19)
PROC: 05HN33Z Insertion of Infusion Device into Left Internal Jugular Vein, Percutaneous Approach (ICD-10-PCS; 2020-04-25)
PROC: B544ZZA Ultrasonography of Left Jugular Veins, Guidance (ICD-10-PCS; 2020-04-25)
PROC: 05HM33Z Insertion of Infusion Device into Right Internal Jugular Vein, Percutaneous Approach (ICD-10-PCS; 2020-05-03)
PROC: B543ZZA Ultrasonography of Right Jugular Veins, Guidance (ICD-10-PCS; 2020-05-03)
PROC: 5A12012 Performance of Cardiac Output, Single, Manual (ICD-10-PCS; 2020-05-05)
DX: U07.1 COVID-19 (principal); J12.89 Other viral pneumonia; R00.0 Tachycardia, unspecified; J80 Acute respiratory distress syndrome; D17.71 Benign lipomatous neoplasm of kidney; R50.9 Fever, unspecified; I10 Essential (primary) hypertension; E66.9 Obesity, unspecified; E11.65 Type 2 diabetes mellitus with hyperglycemia; J93.83 Other pneumothorax; E11.10 Type 2 diabetes mellitus with ketoacidosis without coma; J98.2 Interstitial emphysema; N17.9 Acute kidney failure, unspecified; R65.21 Severe sepsis with septic shock; Z68.33 Body mass index [BMI] 33.0-33.9, adult; D72.829 Elevated white blood cell count, unspecified; E87.5 Hyperkalemia; A41.9 Sepsis, unspecified organism
CPT/HCPCS: 31500; 36415; 36430; 36600; 71045-TC-FY; 71275-TC; 74177-TC; 80048; 80053; 80074; 80076; 81003; 82010; 82248; 82436; 82550; 82565; 82728; 82803; 82962; 83036; 83605; 83615; 83735; 84100; 84133; 84300; 84443; 84484; 85025; 85027; 85379; 85384; 85610; 85651; 85730; 86140; 86850; 86900; 86901; 87040; 87077; 87086; 87389; 87522; 87804; 93005; 93010; 94002; 94660; 99291; C9399; C9803; J0131; J1100; P9017; Q9967; U0003